=== PATIENT | male | born 1940 | race Two or more races ===

== ENCOUNTER 2016-07-20 00:48 | Inpatient (IN) | payer MEDICARE, OTHER ==
[~2016-07-20] VITALS: Ht 167.6 cm; Wt 81.6 kg
[2016-07-20] VITALS (9 sets, daily range): BP systolic 97–141; BP diastolic 44–76
[2016-07-20] MEDS ORDERED: Acetaminophen 500mg (ES) tab ORAL ONE (01:00)
--- NOTE | 2016-07-20 01:10 | Emergency Room Report ---
History of Present Illness General Chief Complaint: Altered Level of Consciousness Source: Family Member, EMS Present Illness HPI Patient present from home He had gone to the restroom and essentially had a near syncopal episode and general weakness patient complains of flank pain as well Was found to have elevated temperature here Patient denies any chest pain or shortness of breath Denies any vomiting or diarrhea Denies any neck pain Patient is somewhat of a poor historian This does limit the history of present illness Allergies: Coded Allergies: No Known Allergies (Unverified , 07/20/16) Patient History Past Medical History: see triage record Pertinent Family History: none Reviewed Nursing Documentation: PMH: Agreed, PSxH: Agreed Nursing Documentation-PMH Hx Hypertension: Yes - GLAUCOMA Review of Systems All Other Systems: negative except mentioned in HPI Physical Exam Vital Signs Date Time Temp Pulse Resp B/P Pulse Ox O2 Delivery O2 Flow Rate FiO2 07/20/16 00:37 99.9 69 21 129/51 99 Room Air Sp02 EP Interpretation: reviewed, normal General Appearance: no apparent distress Head: normocephalic, atraumatic Eyes: bilateral eye other - Blind in both eyes ENT: normal pharynx, no angioedema Neck: supple, thyroid normal Respiratory: chest non-tender, lungs clear, normal breath sounds Cardiovascular #1: regular rate, rhythm Gastrointestinal: non tender, soft Musculoskeletal: other - Edema bilaterally, no obvious focal deficits Neurologic: alert, oriented x3 Skin: other - as above Lymphatic: no adenopathy Medical Decision Making Diagnostic Impression: Primary Impression: Sepsis Additional Impression: UTI (urinary tract infection) ER Course Patient is a fairly complex patient with multiple differential to consideration including but not limited to cardiac cardiopulmonary , infectious and vascular emergencies Patient's urine sample did show infectious pathology Lactic acid was essentially normal Patient's given further IV hydration Antibiotics CT imaging reveals Nonspecific findings no obvious acute disease there is evidence of cirrhosis this time patient continues to do hemodynamically better and admitted for further inpatient care Labs Test 07/20/16 00:50 07/20/16 01:26 07/20/16 02:30 White Blood Count 7.3 K/UL (4.8-10.8) Red Blood Count 3.80 M/UL (4.70-6.10) Hemoglobin 13.1 G/DL (14.2-18.0) Hematocrit 38.0 % (42.0-52.0) Mean Corpuscular Volume 100 FL (80-99) Mean Corpuscular Hemoglobin 34.6 PG (27.0-31.0) Mean Corpuscular Hemoglobin Concent 34.6 G/DL (32.0-36.0) Red Cell Distribution Width 13.5 % (11.6-14.8) Platelet Count 113 K/UL (150-450) Mean Platelet Volume 6.0 FL (6.5-10.1) Neutrophils (%) (Auto) 75.0 % (45.0-75.0) Lymphocytes (%) (Auto) 15.8 % (20.0-45.0) Monocytes (%) (Auto) 7.3 % (1.0-10.0) Eosinophils (%) (Auto) 0.6 % (0.0-3.0) Basophils (%) (Auto) 1.3 % (0.0-2.0) Prothrombin Time 13.3 SEC (9.30-11.50) Prothromb Time International Ratio 1.3 (0.9-1.1) Activated Partial Thromboplast Time 34 SEC (23-33) Sodium Level 137 mEQ/L (135-145) Potassium Level 4.4 mEQ/L (3.4-4.9) Chloride Level 102 mEQ/L (98-107) Carbon Dioxide Level 21 mEQ/L (20-30) Anion Gap 14 (5-15) Blood Urea Nitrogen 12 mg/dL (7-23) Creatinine 0.8 mg/dL (0.7-1.2) Estimat Glomerular Filtration Rate mL/min (>60) Glucose Level 131 mg/dL (74-106) Lactic Acid Level 2.00 mmol/L (0.66-2.22) 1.60 mmol/L (0.66-2.22) Calcium Level 8.0 mg/dL (8.6-10.2) Total Bilirubin 2.4 mg/dL (0.0-1.2) Direct Bilirubin 0.8 mg/dL (0.1-0.3) Aspartate Amino Transf (AST/SGOT) 67 U/L (5-40) Alanine Aminotransferase (ALT/SGPT) 38 U/L (3-41) Alkaline Phosphatase 280 U/L (40-129) Total Creatine Kinase 99 U/L (38-174) Creatine Kinase MB < 1.5 ng/mL (< 6.7) Creatine Kinase MB Relative Index 1.5 Troponin I < 0.30 ng/mL (<=0.30) Pro-B-Type Natriuretic Peptide 137 pg/mL (0-450) Total Protein 7.7 g/dL (6.6-8.7) Albumin 2.3 g/dL (3.5-5.2) Globulin 5.4 g/dL Albumin/Globulin Ratio 0.4 (1.0-2.7) Lipase 64 U/L (< 60) Urine Color Yellow Urine Appearance Clear Urine pH 7 (4.5-8.0) Urine Specific [place] 1.015 (1.005-1.035) Urine Protein 2+ (NEGATIVE) Urine Glucose (UA) Negative (NEGATIVE) Urine Ketones 1+ (NEGATIVE) Urine Occult Blood 5+ (NEGATIVE) Urine Nitrite Negative (NEGATIVE) Urine Bilirubin 2+ (NEGATIVE) Urine Ictotest Negative Urine Urobilinogen 8 MG/DL (0.0-1.0) Urine Leukocyte Esterase 2+ (NEGATIVE) Urine RBC Tntc /HPF (0 - 0) Urine WBC 5-10 /HPF (0 - 0) Urine Squamous Epithelial Cells Few /LPF (NONE/OCC) Urine Bacteria Few /HPF (NONE) Rhythm Strip Diag. Results EP Interpretation: yes Rate: 77 Rhythm: NSR, no PVC's, no ectopy Chest X-Ray Diagnostic Results EP Interpretation: Yes Findings: no consolidation, no effusion, no pneumothorax Number of Views: 1 CT/MRI/US Diagnostic Results CT/MRI/US Diagnostic Results : Impression CT abdomen pelvis: Cirrhosis, calcified gallstone without evidence of cholecystitis bowel evaluation limited atelectasis bilaterally Last Vital Signs Date Time Temp Pulse Resp B/P Pulse Ox O2 Delivery O2 Flow Rate FiO2 07/20/16 00:45 99.9 78 21 125/51 99 Room Air Status: improved Condition: Serious Referrals: NOT CHOSEN IPA/,REFERRING (PCP) GEOFF BARRAGAN D.O. July 20, 2016 01:10
[2016-07-20 01:25] LABS: INR 1.3 (0.9-1.1); PROTHROMBIN TIME 13.3 SEC (9.30-11.50)
[2016-07-20 01:33] LABS: APPEARANCE,URINE CLEAR; KETONES,URINE 1+ (NEGATIVE); LEUKOCYTE ESTERASE ,URINE 2+ (NEGATIVE); NITRITE,URINE NEGATIVE (NEGATIVE); PH,URINE 7 (4.5-8.0); PROTEIN,URINE 2+ (NEGATIVE); UROBILINOGEN,URINE 8 MG/DL (0.0-1.0)
[2016-07-20 01:33] LABS: ALANINE AMINOTRANSFERASE 38 U/L (3-41); ALBUMIN/GLOBULIN RATIO 0.4 (1.0-2.7); ANION GAP 14 (5-15); ASPARTATE AMINO TRANSFERASE 67 U/L (5-40); BASOPHILS % (AUTO) 1.3 % (0.0-2.0); CARBON DIOXIDE 21 mEQ/L (20-30); CHLORIDE 102 mEQ/L (98-107); CREATININE 0.8 mg/dL (0.7-1.2); EOSINOPHILS % (AUTO) 0.6 % (0.0-3.0); HEMOLYSIS 23; LIPASE 64 U/L (< 60); LYMPHOCYTES % (AUTO) 15.8 % (20.0-45.0); MEAN CORPUSCULAR HEMOGLOBIN 34.6 PG (27.0-31.0); MEAN CORPUSCULAR HGB CONC 34.6 G/DL (32.0-36.0); MEAN CORPUSCULAR VOLUME 100 FL (80-99); MONOCYTES % (AUTO) 7.3 % (1.0-10.0); PLATELET COUNT 113 K/UL (150-450); POTASSIUM 4.4 mEQ/L (3.4-4.9); RED CELL DISTRIBUTION WIDTH 13.5 % (11.6-14.8); SODIUM 137 mEQ/L (135-145); TOTAL PROTEIN 7.7 g/dL (6.6-8.7); WHITE BLOOD COUNT 7.3 K/UL (4.8-10.8)
[2016-07-20 01:41] LABS: BACTERIA,URINE FEW /HPF; RBC,URINE TNTC /HPF (0 - 0); SQUAMOUS EPITHELIAL CELL,UR FEW /LPF (NONE/OCC)
[2016-07-20 01:42] LABS: TROPONIN I < 0.30 ng/mL (<=0.30)
[2016-07-20 01:42] LABS: ICTOTEST NEGATIVE
[2016-07-20 01:57] LABS: REFLEX LACTIC ACID YES OR NO YES
[2016-07-20] MEDS ORDERED: Piperacillin/Tazobactam 3.375 GM in NS 110 ML IVPB ONE ×2 (02:00→06:00)
[2016-07-20 02:16] LABS: BILIRUBIN,DIRECT 0.8 mg/dL (0.1-0.3)
[2016-07-20] MEDS ORDERED: Zosyn 3.375gm inj ONE (02:23)
[2016-07-20 02:25] LABS: CKMB < 1.5 ng/mL (< 6.7)
[2016-07-20] MEDS ORDERED: Milk of Magnesia 30ml Ud ORAL PRN (03:45)
[2016-07-20] MEDS ORDERED: LISINOPRIL10 MG ORAL (03:52)
[2016-07-20] MEDS ORDERED: Zosyn 3.375gm q8h **Extended infusion IVPB SCH ×2 (06:00)
[2016-07-20] MEDS: Zosyn 3.375gm q8h **Extended infusion IVPB SCH ×6 (08:00→23:30)
--- NOTE | 2016-07-20 08:56 | Diagnostic Imaging Report ---
Indications: Abdominal/flank pain Technique: Continuous helical CT imaging of the abdomen and pelvis was performed with automatic exposure control on a Siemens sensation [address] scanner. Axial, coronal, and sagittal images were reconstructed at 3 mm slice thickness. No oral or IV contrast was administered per protocol. CTDI volume(s): 17 mGy Total DLP: 882 mGy-cm Findings: Comparison: None. Kidneys, ureters, urinary bladder demonstrate no intraparenchymal or intraluminal stones, collecting system or ureteral dilation, perinephric or periureteral stranding. 14 mm circumscribed low-attenuation mass emanates exophytically from upper pole cortex of right kidney. Urinary bladder is partially distended with apparent mural thickening. Prostate seminal vesicles absent. Multiple surgical clips in prostate bed and along bilateral pelvic sidewalls. The appendix is unremarkable. Mild distention of small bowel loop in the midline upper pelvis. Multiple diverticula in sigmoid colon. No associated mural thickening or adjacent stranding. The gastrointestinal tract is otherwise normal in caliber. No extraluminal gas or fluid collections are demonstrated. Liver demonstrates diffusely nodular surface contour. 3 cm calcified stone is present in the gallbladder lumen. No obvious mural thickening, adjacent fluid or edema. Spleen 13.4 cm. Suggestion of small varices in the upper abdomen. Scattered arterial mural calcifications. Vascular patency indeterminate. Small fat-containing umbilical, left inguinal hernias. Remainder of visualized abdominopelvic anatomy demonstrates no other obvious abnormality, though lack of oral and IV contrast limits evaluation. Mildly increased interstitial markings and dependent portions of both lung bases. 3 mm noncalcified nodule lateral basal segment right pulmonary middle lobe (9-8).. Multilevel disc space narrowing with marginal osteophyte formation, vacuum phenomenon and lumbar, lower thoracic spine. Associated facet sclerosis and hypertrophy in lower lumbar spine. No focal skeletal lesions are identified. IMPRESSION: No evidence of renal or ureteral stone, hydronephrosis or hydroureter. Unremarkable appendix -- no evidence of acute appendicitis. Sigmoid colon diverticulosis. No evidence of acute diverticulitis. Mild distention of upper pelvic small bowel, nonobstructive in appearance, may represent localized ileus, etiology indeterminate Apparent thickening of urinary bladder wall--underdistention versus hypertrophy versus cystitis No other evidence of acute abdominopelvic disease. Lack of oral and IV contrast limits evaluation, however, and subtle abnormalities may be missed. Repeat CT scan with full oral and IV contrast preparation recommended for more complete evaluation, as clinically indicated. Cirrhosis with stigmata of portal hypertension including splenomegaly, varices Cholelithiasis. No evidence of acute cholecystitis. Right renal upper pole exophytic cortical mass probably but not definitely cysts. Ultrasound correlation recommended. Arteriosclerosis, vascular patency indeterminate Previous radical prostatectomy Fat-containing umbilical, left inguinal hernias Probable atelectatic changes in the lung bases Degenerative spondylosis This correlates with [facility] preliminary report. The CT scanner at [facility] is accredited by the [employer] and the scans are performed using protocols designed to limit radiation exposure to as low as reasonably achievable to attain images of sufficient resolution adequate for diagnostic evaluation.
[2016-07-20] MEDS: Aspirin Baby 81mg ORAL SCH (09:00)
--- NOTE | 2016-07-20 09:05 | Diagnostic Imaging Report ---
Indication: Shortness of breath Technique: Single portable AP view of the chest. Findings: Comparison: None. Suboptimal inspiration limits evaluation. Linear density right lung base. Left lung clear. Cardiac silhouette enlarged. Aortic arch calcified. The bones and extra pulmonary soft tissues, remainder of the cardiomediastinal silhouette, pulmonary vasculature, and pleural surfaces are unremarkable. IMPRESSION: Subsegmental atelectasis versus scarring right lung base Upright PA and lateral chest radiographs with better inspiratory effort and optimal technique recommended for more complete evaluation. Cardiomegaly Aortosclerosis.
[2016-07-20] MEDS ORDERED: PREDNISOLONE ACE5 ML OP (09:21)
[2016-07-20] MEDS ORDERED: LUMIGAN2.5 ML BOTH EYES (09:21)
[2016-07-20] MEDS ORDERED: COSOPT EYE DROP10 M1 OP (09:21)
[2016-07-20] MEDS ORDERED: PREDNISOLO15 MG/5 M1 ORAL (09:21)
[2016-07-20] MEDS ORDERED: LASIX20 M1 ORAL (09:21)
--- NOTE | 2016-07-20 12:13 | History & Physical ---
History and Physical History & Physicial HP dictated # [id number] SUSY KULKARNI July 20, 2016 12:13
[2016-07-20 13:15] LABS: CHOLESTEROL/HDL RATIO 5.4 (3.3-4.4)
[2016-07-20] MEDS ORDERED: Pred Forte 1% Opth Susp 1ml BOTH EYES ONE (13:30)
--- NOTE | 2016-07-20 16:43 | Neurology Progress Note ---
Objective Physical Exam Last Vital Signs Date Time Temp Pulse Resp B/P Pulse Ox O2 Delivery O2 Flow Rate FiO2 07/20/16 12:04 97.7 92 20 97/50 98 Room Air Laboratory Tests Test 07/20/16 00:50 07/20/16 01:26 07/20/16 02:30 White Blood Count 7.3 K/UL (4.8-10.8) Red Blood Count 3.80 M/UL (4.70-6.10) L Hemoglobin 13.1 G/DL (14.2-18.0) L Hematocrit 38.0 % (42.0-52.0) L Mean Corpuscular Volume 100 FL (80-99) H Mean Corpuscular Hemoglobin 34.6 PG (27.0-31.0) H Mean Corpuscular Hemoglobin Concent 34.6 G/DL (32.0-36.0) Red Cell Distribution Width 13.5 % (11.6-14.8) Platelet Count 113 K/UL (150-450) L Mean Platelet Volume 6.0 FL (6.5-10.1) L Neutrophils (%) (Auto) 75.0 % (45.0-75.0) Lymphocytes (%) (Auto) 15.8 % (20.0-45.0) L Monocytes (%) (Auto) 7.3 % (1.0-10.0) Eosinophils (%) (Auto) 0.6 % (0.0-3.0) Basophils (%) (Auto) 1.3 % (0.0-2.0) Prothrombin Time 13.3 SEC (9.30-11.50) H Prothromb Time International Ratio 1.3 (0.9-1.1) H Activated Partial Thromboplast Time 34 SEC (23-33) H Sodium Level 137 mEQ/L (135-145) Potassium Level 4.4 mEQ/L (3.4-4.9) Chloride Level 102 mEQ/L (98-107) Carbon Dioxide Level 21 mEQ/L (20-30) Anion Gap 14 (5-15) Blood Urea Nitrogen 12 mg/dL (7-23) Creatinine 0.8 mg/dL (0.7-1.2) Estimat Glomerular Filtration Rate mL/min (>60) Glucose Level 131 mg/dL (74-106) H Lactic Acid Level 2.00 mmol/L (0.66-2.22) 1.60 mmol/L (0.66-2.22) Calcium Level 8.0 mg/dL (8.6-10.2) L Total Bilirubin 2.4 mg/dL (0.0-1.2) H Direct Bilirubin 0.8 mg/dL (0.1-0.3) H Aspartate Amino Transf (AST/SGOT) 67 U/L (5-40) H Alanine Aminotransferase (ALT/SGPT) 38 U/L (3-41) Alkaline Phosphatase 280 U/L (40-129) H Total Creatine Kinase 99 U/L (38-174) Creatine Kinase MB < 1.5 ng/mL (< 6.7) Creatine Kinase MB Relative Index 1.5 Troponin I < 0.30 ng/mL (<=0.30) Pro-B-Type Natriuretic Peptide 137 pg/mL (0-450) Total Protein 7.7 g/dL (6.6-8.7) Albumin 2.3 g/dL (3.5-5.2) L Globulin 5.4 g/dL Albumin/Globulin Ratio 0.4 (1.0-2.7) L Triglycerides Level 135 mg/dL (< 150) Cholesterol Level 125 mg/dL (< 200) LDL Cholesterol 75 mg/dL (60-99) HDL Cholesterol 23 mg/dL (> 60) Cholesterol/HDL Ratio 5.4 (3.3-4.4) H Lipase 64 U/L (< 60) H Urine Color Yellow Urine Appearance Clear Urine pH 7 (4.5-8.0) Urine Specific [place] 1.015 (1.005-1.035) Urine Protein 2+ (NEGATIVE) H Urine Glucose (UA) Negative (NEGATIVE) Urine Ketones 1+ (NEGATIVE) H Urine Occult Blood 5+ (NEGATIVE) H Urine Nitrite Negative (NEGATIVE) Urine Bilirubin 2+ (NEGATIVE) H Urine Ictotest Negative Urine Urobilinogen 8 MG/DL (0.0-1.0) H Urine Leukocyte Esterase 2+ (NEGATIVE) H Urine RBC Tntc /HPF (0 - 0) H Urine WBC 5-10 /HPF (0 - 0) H Urine Squamous Epithelial Cells Few /LPF (NONE/OCC) Urine Bacteria Few /HPF (NONE) Impression/Recommendations Recommendations #[id number] LORI NERI July 20, 2016 16:43
[2016-07-20] MEDS: Cosopt Opth Soln 10 mL Btl BOTH EYES SCH (17:18)
--- NOTE | 2016-07-20 17:32 | History and Physical Report ---
DATE OF ADMISSION: 07/20/2016 CHIEF COMPLAINT: The patient had an episode of weakness and change in mental status. HISTORY OF PRESENT ILLNESS: This is a 76-year-old male, who was in his usual state of health. Yesterday, he went to the bathroom and then, he felt very weak. The patient lives with and daughter and they tried to help him to get around, but then he became unresponsive, although his eyes were open, he was becoming nonverbal. The patient was brought in to the emergency room by paramedics. This episode of not responding was short time according to the granddaughter, who is at bedside. The granddaughter was not present, but this is the history she obtained. PAST MEDICAL HISTORY: Includes history of glaucoma and history of hypertension. MEDICATIONS: Reviewed. ALLERGIES: No known drug allergies. SOCIAL HISTORY: No history of smoking or alcohol abuse. As mentioned, the patient lives with and another daughter. REVIEW OF SYSTEMS: Unobtainable. PHYSICAL EXAMINATION: GENERAL: The patient is an elderly male, in no acute distress. VITAL SIGNS: Blood pressure is 102/49, pulse 67, temperature 97.9 degrees, and respiratory rate is 20. HEENT: [place] conjunctivae. Anicteric sclerae. NECK: Supple. LUNGS: Clear to auscultation. HEART: S1 and S2 without murmurs or rubs. ABDOMEN: Soft and nontender. EXTREMITIES: Bilateral pedal edema. LABORATORY FINDINGS: The CBC shows a WBC of 7.3, hematocrit 38, hemoglobin 13.1, and platelets 113,000. Chemistry panel shows serum sodium of 137, potassium 4.4, chloride 102, CO2 21, BUN is 12, creatinine 0.8, blood sugar is 131, and calcium is 8. Albumin is 2.3. The UA shows too numerous to count RBCs and 5 to 10 WBCs per high-power field. ASSESSMENT: This is a 76-year-old male, who is admitted with what appears to be an episode of syncope. He has also evidence of urinary tract infection. He has significant peripheral edema on diuretics, question is if he has underlying congestive heart failure. PLAN: The patient was started on IV antibiotics. I will get an echocardiogram to assess LV function. The patient will be diuresed if needed. Neurology consultation will be obtained. Labs will be followed closely and further adjustments will be made in the patient's regimen. Also, I will order a renal ultrasound to make sure the patient does not have any stones. Dhaval Villeda M.D. DR: JAMES JOB#: [id number] CC:
[2016-07-20] MEDS: LUMIGAN 0.01% BOTH EYES SCH (21:00)
[2016-07-20] MEDS: OPTHALMIC BOTH EYES SCH (21:00)
--- NOTE | 2016-07-21 00:02 | Consultation ---
DATE OF CONSULTATION: 07/20/2016 INFECTIOUS DISEASE CONSULTATION PRIMARY ATTENDING PHYSICIAN: Dhaval Villeda M.D. REASON FOR CONSULT: UTI. HISTORY OF PRESENT ILLNESS: The patient is a 76-year-old male admitted today from home because of near syncope episode. The patient is complaining of weakness, flank pain, low-grade fever up to 99.9 degrees. The patient was found to have hematuria. PAST MEDICAL HISTORY: Significant for blindness, hypertension, cirrhosis. MEDICATIONS: Pred-Forte, Cosopt eye drop, aspirin, Zantac, Zosyn, Tylenol, milk of magnesia, and Zofran. ALLERGIES: No known drug allergy. SOCIAL HISTORY: Lives at home. Had history of heavy drinking 30 years ago. No drug abuse. No smoking. Minimally ambulatory at home where he experienced near syncope. REVIEW OF SYSTEMS: General: He is a very poor historian. PHYSICAL EXAMINATION: HEAD AND NECK: He has bilateral blindness. HEART: Regular. LUNGS: Clear. ABDOMEN: Soft and nontender. EXTREMITIES: He has swelling of both legs. LABORATORY AND DIAGNOSTIC DATA: WBC 7.3, hemoglobin 13.1, hematocrit 38, and platelets 113,000. Sodium 137, potassium 4.4, chloride 102, bicarbonate 21, and glucose 131. Bilirubin 2.4. AST 67, ALT 38 and alkaline phosphatase is 180. Lipase is 64. CT scan of the abdomen shows cirrhosis, cholelithiasis, portal hypertension, splenomegaly, and diverticulosis without diverticulitis. Chest x-ray showed subsegmental atelectasis versus scarring of right lung base, cardiomegaly, and atherosclerosis. Urinalysis showed 2+ bilirubin, leukocyte esterase 2+, RBC too numerous to count, and WBC 5-10. IMPRESSION: 1. Urinary tract infection. 2. The patient seems to have hematuria and pyuria. 3. Cirrhosis. 4. Portal hypertension. 5. Splenomegaly. 6. He has blindness. 7. History of hypertension. 8. Diverticulosis without diverticulitis. 9. Cholelithiasis. ATTENDING PHYSICIAN: We will continue with Zosyn and follow up the culture on antibiotics. I thank, Dr. Dhaval Villeda, for involving me in the care of this patient. Edvin Villeda M.D. DR: ALFRED JOB#: [id number] CC: GLENDA
--- NOTE | 2016-07-21 02:46 | Consultation ---
DATE OF CONSULTATION: 07/20/2016 NEUROLOGICAL CONSULTATION CONSULTING PHYSICIAN: Steven Pimentel M.D. REFERRING PHYSICIAN: Dhaval Villeda M.D. HISTORY OF PRESENT ILLNESS: This is a 76-year-old man seen in neurological consultation to evaluate the progressive abnormality of gait with episode of unresponsiveness. According to the patient as well as family known that in the last couple of years, he is having increasing difficulty with ambulation using someone helps, holding to the thompson, but refusing to use cane or walker. In the last few days, he developed significant swelling in both lower extremities feel "like a cold." On the day of admission, he was found to be in the bathroom on the ground confused, slowly unable to verbalize, unable to move arms and legs. So, the family had to carry him to the bed. He was not responding well and with this he was brought to the emergency room. He was complaining of pain in the flank area. His vital signs on admission included a temperature of 99.9. His laboratory work included a CBC study with hemoglobin 13.1, hematocrit 38.0, and elevated MCV and MCH, mild coagulopathy, INR 1.3 and PT of 13.3. Chemistry panel abnormal, elevated total bilirubin 2.4, AST 67, alkaline phosphatase 80, elevated lipase of 64, and albumin down to 2.3. Urinalysis with WBCs 5 to 10, RBC too numerous to count, 3+ leukocyte esterase, and 2+ protein. Imaging studies included a chest x-ray revealing cardiomegaly and aortic sclerosis. CAT scan of the abdomen and pelvis was abnormal revealing sigmoid colon diverticulosis, thickening of urinary bladder wall, cirrhosis with portal hypertension including splenomegaly and varices, cholelithiasis, and degenerative spondylosis. Since admission to present, the patient has retrograde amnesia on the vent. PAST MEDICAL HISTORY: The patient has extensive medical history including glaucoma with legal blindness, hypertension, prostate CA required a TURP, and history of progressive abnormality of gait. MEDICATIONS: Treatment prior to admission included eye drops, Lasix, lisinopril, and prednisone. FAMILY HISTORY: Noncontributory. SOCIAL HISTORY: Lives with his family. Able to provide himself with activities of daily living. Ambulating on his own, but holding to the wall and furniture. REVIEW OF SYMPTOMS: Denies headache or dizziness. No chest pain. No palpitations. No respiratory problems, but complains of significant weakness in his both lower extremities, difficult to ambulation and now new swelling in his lower extremities, blindness, and denies any swallowing abnormalities. No unilateral numbness, or tingling. PHYSICAL EXAMINATION: GENERAL: A well-developed, well-nourished, elderly man, lying comfortably in bed. He has the family members at the bedside. VITAL SIGNS: Stable. Blood pressure down to 97/50. He is afebrile. HEENT: Head is normocephalic. No evidence of trauma. No evidence of injuries. Eyes, no corneal lesions. NECK: Supple. No meningeal signs. MUSCULOSKELETAL EXAMINATION: A 2+ pitting edema of both lower extremities from knees down with some redness. Peripheral pulses unable to test for both feet. MENTAL STATUS: He is alert and oriented x3 with no evidence of aphasia or apraxia. He is a poor historian, but able to provide limited history. CRANIAL NERVE II: A 3 mm sluggishly responding to light. Visual acuity light perception only. Fundi unable to see. CRANIAL NERVE V: Normal corneal responses. CRANIAL NERVE VII: No gross asymmetry. CRANIAL NERVE VIII: Normal hearing. CRANIAL NERVES IX THROUGH XII: Tongue is in midline. Symmetric palatal elevation. MOTOR EXAMINATION: Revealed normal muscle tone and strength in both upper extremities. Normal muscle tone and strength in both lower extremities. Deep tendon reflexes depressed biceps, triceps, lower knee and ankle jerks. Plantar responses flexor. SENSORY EXAMINATION: Withdrawing to pin in both upper and lower extremities. Gait, the patient was helped to get up. He was walking very slowly, small steps, unsteady and pause due to blindness. IMPRESSION: 1. Progressive abnormality of gait multifactorial with worsening weakness due to underlying infection. 2. Lower extremity swelling, rule out cellulitis, rule out deep vein thrombosis. 3. Hypertension. 4. Glaucoma. 5. History of prostate cancer, status post prostatectomy. RECOMMENDATION: 1. Venous duplex study of both lower extremities. 2. PT and OT for mobility protocol and use of a walker in view of patient's blindness. 3. Continue on intravenous fluids and antibiotics to cover underlying infection. Thank you for allowing me to see this interesting patient in neurological consultation. Steven Pimentel M.D. DR: FAIZA JOB#: [id number] CC:
[2016-07-21 04:15] VITALS: BP 100/48
[2016-07-21 07:22] LABS: MEAN CORPUSCULAR HEMOGLOBIN 35.5 PG (27.0-31.0); MEAN CORPUSCULAR HGB CONC 34.9 G/DL (32.0-36.0); MEAN CORPUSCULAR VOLUME 102 FL (80-99); PLATELET COUNT 72 K/UL (150-450); RED BLOOD COUNT 3.02 M/UL (4.70-6.10); RED CELL DISTRIBUTION WIDTH 13.4 % (11.6-14.8); WHITE BLOOD COUNT 4.3 K/UL (4.8-10.8)
[2016-07-21 07:45] VITALS: BP 122/67
[2016-07-21 07:47] LABS: ALANINE AMINOTRANSFERASE 30 U/L (3-41); ALBUMIN/GLOBULIN RATIO 0.4 (1.0-2.7); ANION GAP 9 (5-15); ASPARTATE AMINO TRANSFERASE 68 U/L (5-40); CALCIUM 7.6 mg/dL (8.6-10.2); CARBON DIOXIDE 23 mEQ/L (20-30); CHLORIDE 105 mEQ/L (98-107); CREATININE 0.8 mg/dL (0.7-1.2); HEMOLYSIS 4; POTASSIUM 3.7 mEQ/L (3.4-4.9); SODIUM 137 mEQ/L (135-145); TOTAL PROTEIN 5.9 g/dL (6.6-8.7)
[2016-07-21 07:54] LABS: HEMOGLOBIN A1C 5.6 % (< 6.0)
[2016-07-21 08:00] LABS: BILIRUBIN,DIRECT 0.7 mg/dL (0.1-0.3)
[2016-07-21] MEDS: Zosyn 3.375gm q8h **Extended infusion IVPB SCH ×6 (08:00→23:44)
[2016-07-21] MEDS: Pred Forte 1% Opth Susp 1ml BOTH EYES SCH (08:31)
[2016-07-21] MEDS: Aspirin Baby 81mg ORAL SCH (08:33)
[2016-07-21] MEDS: Cosopt Opth Soln 10 mL Btl BOTH EYES SCH ×2 (08:33→17:24)
[2016-07-21] MEDS ORDERED: Pred Forte 1% Opth Susp 1ml LEFT EYE SCH (09:00)
[2016-07-21 09:55] LABS: BAND NEUTROPHILS % (MANUAL) 0 % (0-8); BASOPHILS % (MANUAL) 1 % (0-2); EOSINOPHILS % (MANUAL) 3 % (0-3); LYMPHOCYTES % (MANUAL) 31 % (20-45); NEUTROPHILS % (MANUAL) 54 % (45-75); PLATELET ESTIMATE DECREASED; PLATELET MORPHOLOGY NORMAL; TOTAL CELLS COUNTED 100
[2016-07-21 09:57] LABS: MACROCYTES 1+
[2016-07-21 11:19] VITALS: BP 115/54
--- NOTE | 2016-07-21 12:16 | Diagnostic Imaging Report ---
Indication: Abnormal renal function tests, elevated creatinine, history of prostate carcinoma, renal mass on recent CT scan Technique: Grayscale and duplex images of the kidneys, retroperitoneum, and bladder were obtained. Comparison:07/20/2016 CT abdomen pelvis Findings: Right kidney measures 11 cm in length. Left kidney measures cm in length. Both kidneys demonstrate normal echogenicity. No hydronephrosis. Anechoic mass with distal acoustic enhancement seen coming off the upper pole right kidney, consistent with a benign simple cyst, corresponding to the abnormality described on recent CT. No focal finding on the left kidney. Normal inferior vena cava. Bladder is nondistended, demonstrates equivocal wall thickening. Impression: Upper pole right renal mass reported on recent CT scan is confirmed to be a benign simple cortical cyst Negative for hydronephrosis Nondistended bladder, equivocal mild bladder wall thickening, cystitis not excludable..
--- NOTE | 2016-07-21 12:22 | Infectious Diseases Prog Note ---
Assessment/Plan Assessment/Plan antibiotics : zosyn A 1. gram positive sepsis 2. cirrhosis 3. HTN P 1. continue zosyn 2. start iv vancomycin 3. 2 d echo 4. will follow up cultures Subjective ROS Limited/Unobtainable: Yes Allergies: Coded Allergies: No Known Allergies (Unverified , 07/20/16) Objective Vital Signs Last 24 Hour Vital Signs Date Time Temp Pulse Resp B/P Pulse Ox O2 Delivery O2 Flow Rate FiO2 07/21/16 11:19 98.3 62 20 115/54 98 Room Air 07/21/16 08:00 56 07/21/16 07:45 98.1 58 20 122/67 97 Room Air 07/21/16 04:15 98.2 60 19 100/48 96 Room Air 07/21/16 04:00 52 07/21/16 00:00 57 07/20/16 23:49 97.9 56 18 101/60 98 Room Air 07/20/16 20:17 97.7 98 20 104/60 100 Room Air 07/20/16 20:00 53 07/20/16 16:00 97.6 80 20 100/55 98 Room Air 07/20/16 16:00 58 Height (Feet): 5 Height (Inches): 6.00 Weight (Pounds): 180 Respiratory/Chest: lungs clear Cardiovascular: normal rate, regular rhythm, no gallop/murmur Abdomen: soft, non tender Extremities: other - + edema bilaterally Microbiology Date/Time Source Procedure Growth Status 07/20/16 00:50 Blood Blood Culture - Preliminary Resulted 07/20/16 00:35 Blood Blood Culture - Preliminary Resulted Laboratory Tests Test 07/21/16 05:25 White Blood Count 4.3 K/UL (4.8-10.8) L Red Blood Count 3.02 M/UL (4.70-6.10) L Hemoglobin 10.7 G/DL (14.2-18.0) L Hematocrit 30.7 % (42.0-52.0) L Mean Corpuscular Volume 102 FL (80-99) H Mean Corpuscular Hemoglobin 35.5 PG (27.0-31.0) H Mean Corpuscular Hemoglobin Concent 34.9 G/DL (32.0-36.0) Red Cell Distribution Width 13.4 % (11.6-14.8) Platelet Count 72 K/UL (150-450) L Mean Platelet Volume 6.0 FL (6.5-10.1) L Neutrophils (%) (Auto) % (45.0-75.0) Lymphocytes (%) (Auto) % (20.0-45.0) Monocytes (%) (Auto) % (1.0-10.0) Eosinophils (%) (Auto) % (0.0-3.0) Basophils (%) (Auto) % (0.0-2.0) Differential Total Cells Counted 100 Neutrophils % (Manual) 54 % (45-75) Lymphocytes % (Manual) 31 % (20-45) Monocytes % (Manual) 11 % (1-10) H Eosinophils % (Manual) 3 % (0-3) Basophils % (Manual) 1 % (0-2) Band Neutrophils 0 % (0-8) Platelet Estimate Decreased L Platelet Morphology Normal Macrocytosis 1+ Sodium Level 137 mEQ/L (135-145) Potassium Level 3.7 mEQ/L (3.4-4.9) Chloride Level 105 mEQ/L (98-107) Carbon Dioxide Level 23 mEQ/L (20-30) Anion Gap 9 (5-15) Blood Urea Nitrogen 17 mg/dL (7-23) Creatinine 0.8 mg/dL (0.7-1.2) Estimat Glomerular Filtration Rate mL/min (>60) Glucose Level 93 mg/dL (74-106) Hemoglobin A1c 5.6 % (< 6.0) Calcium Level 7.6 mg/dL (8.6-10.2) L Total Bilirubin 1.9 mg/dL (0.0-1.2) H Direct Bilirubin 0.7 mg/dL (0.1-0.3) H Aspartate Amino Transf (AST/SGOT) 68 U/L (5-40) H Alanine Aminotransferase (ALT/SGPT) 30 U/L (3-41) Alkaline Phosphatase 152 U/L (40-129) H Total Protein 5.9 g/dL (6.6-8.7) L Albumin 1.7 g/dL (3.5-5.2) L Globulin 4.2 g/dL Albumin/Globulin Ratio 0.4 (1.0-2.7) L EMERY HIGGINBOTHAM July 21, 2016 12:22
[2016-07-21] MEDS ORDERED: NS 275ml ONE (13:58)
[2016-07-21] MEDS ORDERED: Vancomycin 1.5 GM in D5W 325 ML IVPB SCH (14:00)
--- NOTE | 2016-07-21 14:29 | General Progress Note ---
Assessment/Plan Problem List: (1) UTI (urinary tract infection) ICD Codes: N39.0 - Urinary tract infection, site not specified SNOMED: 79981967 (2) Sepsis ICD Codes: A41.9 - Sepsis, unspecified organism SNOMED: 08589825 (3) Gram-positive bacteremia ICD Codes: R78.81 - Bacteremia SNOMED: 257474834004 (4) Anasarca ICD Codes: R60.1 - Generalized edema SNOMED: 915449160, 684626432 Assessment/Plan Abxs check Echo GI consult Discussed with daughter Subjective Allergies: Coded Allergies: No Known Allergies (Unverified , 07/20/16) Subjective In NAD Objective Last 24 Hour Vital Signs Date Time Temp Pulse Resp B/P Pulse Ox O2 Delivery O2 Flow Rate FiO2 07/21/16 11:19 98.3 62 20 115/54 98 Room Air 07/21/16 08:00 56 07/21/16 07:45 98.1 58 20 122/67 97 Room Air 07/21/16 04:15 98.2 60 19 100/48 96 Room Air 07/21/16 04:00 52 07/21/16 00:00 57 07/20/16 23:49 97.9 56 18 101/60 98 Room Air 07/20/16 20:17 97.7 98 20 104/60 100 Room Air 07/20/16 20:00 53 07/20/16 16:00 97.6 80 20 100/55 98 Room Air 07/20/16 16:00 58 Intake and Output 07/20/16 07/21/16 19:00 07:00 Intake Total 852.5 ml 137.5 ml Balance 852.5 ml 137.5 ml Intake Oral 360 ml IV Total 492.5 ml 137.5 ml # Voids 5 2 Laboratory Tests 07/21/16 05:25: White Blood Count 4.3L, Red Blood Count 3.02L, Hemoglobin 10.7L, Hematocrit 30.7L, Mean Corpuscular Volume 102H, Mean Corpuscular Hemoglobin 35.5H, Mean Corpuscular Hemoglobin Concent 34.9, Red Cell Distribution Width 13.4, Platelet Count 72L, Mean Platelet Volume 6.0L, Neutrophils (%) (Auto) , Lymphocytes (%) ( Auto) , Monocytes (%) (Auto) , Eosinophils (%) (Auto) , Basophils (%) (Auto) , Differential Total Cells Counted 100, Neutrophils % (Manual) 54, Lymphocytes % ( Manual) 31, Monocytes % (Manual) 11H, Eosinophils % (Manual) 3, Basophils % ( Manual) 1, Band Neutrophils 0, Platelet Estimate DecreasedL, Platelet Morphology Normal, Macrocytosis 1+, Sodium Level 137, Potassium Level 3.7, Chloride Level 105, Carbon Dioxide Level 23, Anion Gap 9, Blood Urea Nitrogen 17 , Creatinine 0.8, Estimat Glomerular Filtration Rate , Glucose Level 93, Hemoglobin A1c 5.6, Calcium Level 7.6L, Total Bilirubin 1.9H, Direct Bilirubin 0.7H, Aspartate Amino Transf (AST/SGOT) 68H, Alanine Aminotransferase (ALT/SGPT ) 30, Alkaline Phosphatase 152H, Total Protein 5.9L, Albumin 1.7L, Globulin 4.2 , Albumin/Globulin Ratio 0.4L Height (Feet): 5 Height (Inches): 6.00 Weight (Pounds): 180 Cardiovascular: normal rate Respiratory/Chest: lungs clear Edema: 4+ Generalized SUSY KULKARNI July 21, 2016 14:29
[2016-07-21 15:21] VITALS: BP 122/57
--- NOTE | 2016-07-21 18:29 | Diagnostic Imaging Report ---
APPROVED REPORT CPT Code: 93035 Present Symptoms Lower Extremity Pain: Bilateral Lower Extremity Edema: Bilateral BILATERAL: Imaging reveals a patent deep venous system bilaterally. There is no evidence of thrombus within the femoral, popliteal or tibial segments. The greater saphenous veins are also within normal limits. Doppler indicates normal spontaneous flow within these segments.
[2016-07-21 20:05] VITALS: BP 115/62
[2016-07-21] MEDS: OPTHALMIC BOTH EYES SCH (20:40)
[2016-07-21] MEDS: LUMIGAN 0.01% BOTH EYES SCH (20:40)
--- NOTE | 2016-07-21 22:33 | General Progress Note ---
Assessment/Plan Assessment/Plan Assessment - Cirrhosis, etiology? - portal HTN - Edema - Resolving AMS Recommendations - Check AFP - Check NH3 - Lasix/Aldactone, if OK with renal - low salt diet - can refer to liver transplant clinic as outpatient, although doubt candidate based on age and level of disease Subjective Allergies: Coded Allergies: No Known Allergies (Unverified , 07/20/16) Objective Last 24 Hour Vital Signs Date Time Temp Pulse Resp B/P Pulse Ox O2 Delivery O2 Flow Rate FiO2 07/21/16 20:05 98.6 54 19 115/62 95 Room Air 07/21/16 16:00 53 07/21/16 15:21 98.3 54 20 122/57 97 Room Air 07/21/16 12:00 63 07/21/16 11:19 98.3 62 20 115/54 98 Room Air 07/21/16 08:00 56 07/21/16 07:45 98.1 58 20 122/67 97 Room Air 07/21/16 04:15 98.2 60 19 100/48 96 Room Air 07/21/16 04:00 52 07/21/16 00:00 57 07/20/16 23:49 97.9 56 18 101/60 98 Room Air Intake and Output 07/20/16 07/21/16 19:00 07:00 Intake Total 852.5 ml 137.5 ml Balance 852.5 ml 137.5 ml Intake Oral 360 ml IV Total 492.5 ml 137.5 ml # Voids 5 2 Laboratory Tests 07/21/16 05:25: White Blood Count 4.3L, Red Blood Count 3.02L, Hemoglobin 10.7L, Hematocrit 30.7L, Mean Corpuscular Volume 102H, Mean Corpuscular Hemoglobin 35.5H, Mean Corpuscular Hemoglobin Concent 34.9, Red Cell Distribution Width 13.4, Platelet Count 72L, Mean Platelet Volume 6.0L, Neutrophils (%) (Auto) , Lymphocytes (%) ( Auto) , Monocytes (%) (Auto) , Eosinophils (%) (Auto) , Basophils (%) (Auto) , Differential Total Cells Counted 100, Neutrophils % (Manual) 54, Lymphocytes % ( Manual) 31, Monocytes % (Manual) 11H, Eosinophils % (Manual) 3, Basophils % ( Manual) 1, Band Neutrophils 0, Platelet Estimate DecreasedL, Platelet Morphology Normal, Macrocytosis 1+, Sodium Level 137, Potassium Level 3.7, Chloride Level 105, Carbon Dioxide Level 23, Anion Gap 9, Blood Urea Nitrogen 17 , Creatinine 0.8, Estimat Glomerular Filtration Rate , Glucose Level 93, Hemoglobin A1c 5.6, Calcium Level 7.6L, Total Bilirubin 1.9H, Direct Bilirubin 0.7H, Aspartate Amino Transf (AST/SGOT) 68H, Alanine Aminotransferase (ALT/SGPT ) 30, Alkaline Phosphatase 152H, Total Protein 5.9L, Albumin 1.7L, Globulin 4.2 , Albumin/Globulin Ratio 0.4L Height (Feet): 5 Height (Inches): 6.00 Weight (Pounds): 180 NEO TAMAYO July 21, 2016 22:33
[2016-07-22 00:19] VITALS: BP 122/62
[2016-07-22 04:05] VITALS: BP 106/60
[2016-07-22 08:00] VITALS: BP 124/58
[2016-07-22] MEDS: Zosyn 3.375gm q8h **Extended infusion IVPB SCH ×4 (08:21→15:13)
[2016-07-22] MEDS: Cosopt Opth Soln 10 mL Btl BOTH EYES SCH ×2 (08:22→17:33)
[2016-07-22] MEDS: Pred Forte 1% Opth Susp 1ml BOTH EYES SCH (08:22)
[2016-07-22] MEDS: Aspirin Baby 81mg ORAL SCH (08:22)
[2016-07-22] MEDS ORDERED: Spironolactone 50mg tab ORAL SCH (09:00)
[2016-07-22 10:11] LABS: MEAN CORPUSCULAR HEMOGLOBIN 34.3 PG (27.0-31.0); MEAN CORPUSCULAR HGB CONC 33.7 G/DL (32.0-36.0); MEAN CORPUSCULAR VOLUME 102 FL (80-99); PLATELET COUNT 92 K/UL (150-450); RED BLOOD COUNT 3.36 M/UL (4.70-6.10); RED CELL DISTRIBUTION WIDTH 13.5 % (11.6-14.8); WHITE BLOOD COUNT 3.8 K/UL (4.8-10.8)
[2016-07-22 10:23] LABS: AMMONIA 95 umol/L (16-60)
[2016-07-22 10:24] LABS: ALANINE AMINOTRANSFERASE 33 U/L (3-41); ALBUMIN/GLOBULIN RATIO 0.3 (1.0-2.7); ANION GAP 10 (5-15); ASPARTATE AMINO TRANSFERASE 74 U/L (5-40); CALCIUM 7.6 mg/dL (8.6-10.2); CARBON DIOXIDE 22 mEQ/L (20-30); CHLORIDE 102 mEQ/L (98-107); CREATININE 0.7 mg/dL (0.7-1.2); HEMOLYSIS 3; POTASSIUM 3.8 mEQ/L (3.4-4.9); SODIUM 134 mEQ/L (135-145); TOTAL PROTEIN 6.4 g/dL (6.6-8.7)
--- NOTE | 2016-07-22 10:28 | Infectious Diseases Prog Note ---
Assessment/Plan Assessment/Plan antibiotics : vancomycin iv, zosyn A 1. cystitis 2. cirrhosis 3. HTN 4. + blood cultures with coag neg staph likely contaminated P 1. continue zosyn 2. urine cultures 3. will follow up cultures 4. d/c iv vancomycin Subjective ROS Limited/Unobtainable: Yes Allergies: Coded Allergies: No Known Allergies (Unverified , 07/20/16) Objective Vital Signs Last 24 Hour Vital Signs Date Time Temp Pulse Resp B/P Pulse Ox O2 Delivery O2 Flow Rate FiO2 07/22/16 08:00 97.7 60 19 124/58 99 Room Air 07/22/16 04:22 57 07/22/16 04:05 98.2 58 19 106/60 96 07/22/16 02:01 61 07/22/16 00:19 97.5 54 20 122/62 98 Room Air 07/21/16 20:05 98.6 54 19 115/62 95 Room Air 07/21/16 20:00 53 07/21/16 16:00 53 07/21/16 15:21 98.3 54 20 122/57 97 Room Air 07/21/16 12:00 63 07/21/16 11:19 98.3 62 20 115/54 98 Room Air Height (Feet): 5 Height (Inches): 6.00 Weight (Pounds): 180 Respiratory/Chest: lungs clear Cardiovascular: normal rate, regular rhythm, no gallop/murmur Abdomen: soft, non tender Extremities: other - + edema Microbiology Date/Time Source Procedure Growth Status 07/20/16 00:50 Blood Blood Culture - Final Staphylococcus Sp Coag Neg Complete 07/20/16 00:35 Blood Blood Culture - Preliminary Staphylococcus Sp Coag Neg Resulted Laboratory Tests Test 07/22/16 09:44 White Blood Count 3.8 K/UL (4.8-10.8) L Red Blood Count 3.36 M/UL (4.70-6.10) L Hemoglobin 11.5 G/DL (14.2-18.0) L Hematocrit 34.2 % (42.0-52.0) L Mean Corpuscular Volume 102 FL (80-99) H Mean Corpuscular Hemoglobin 34.3 PG (27.0-31.0) H Mean Corpuscular Hemoglobin Concent 33.7 G/DL (32.0-36.0) Red Cell Distribution Width 13.5 % (11.6-14.8) Platelet Count 92 K/UL (150-450) L Mean Platelet Volume 6.0 FL (6.5-10.1) L Neutrophils (%) (Auto) % (45.0-75.0) Lymphocytes (%) (Auto) % (20.0-45.0) Monocytes (%) (Auto) % (1.0-10.0) Eosinophils (%) (Auto) % (0.0-3.0) Basophils (%) (Auto) % (0.0-2.0) Neutrophils % (Manual) Pending Lymphocytes % (Manual) Pending Platelet Estimate Pending Platelet Morphology Pending Sodium Level 134 mEQ/L (135-145) L Potassium Level 3.8 mEQ/L (3.4-4.9) Chloride Level 102 mEQ/L (98-107) Carbon Dioxide Level 22 mEQ/L (20-30) Anion Gap 10 (5-15) Blood Urea Nitrogen 12 mg/dL (7-23) Creatinine 0.7 mg/dL (0.7-1.2) Estimat Glomerular Filtration Rate mL/min (>60) Glucose Level 156 mg/dL (74-106) H Calcium Level 7.6 mg/dL (8.6-10.2) L Total Bilirubin 1.2 mg/dL (0.0-1.2) Direct Bilirubin Pending Aspartate Amino Transf (AST/SGOT) 74 U/L (5-40) H Alanine Aminotransferase (ALT/SGPT) 33 U/L (3-41) Alkaline Phosphatase 196 U/L (40-129) H Ammonia 95 umol/L (16-60) H Total Protein 6.4 g/dL (6.6-8.7) L Albumin 1.8 g/dL (3.5-5.2) L Globulin 4.6 g/dL Albumin/Globulin Ratio 0.3 (1.0-2.7) L Alpha Fetoprotein Pending Hepatitis A IgM Antibody Pending Hepatitis B Surface Antigen Pending Hepatitis B Core IgM Antibody Pending Hepatitis C Antibody Pending EMERY HIGGINBOTHAM July 22, 2016 10:28
[2016-07-22 10:36] LABS: BILIRUBIN,DIRECT 0.5 mg/dL (0.1-0.3)
[2016-07-22 10:42] LABS: EOSINOPHILS % (MANUAL) 3 % (0-3); LYMPHOCYTES % (MANUAL) 45 % (20-45); NEUTROPHILS % (MANUAL) 47 % (45-75); TOTAL CELLS COUNTED 100
[2016-07-22 10:43] LABS: ANISOCYTOSIS 1+; BAND NEUTROPHILS % (MANUAL) 0 % (0-8); BASOPHILS % (MANUAL) 0 % (0-2); HYPOCHROMASIA 1+; MACROCYTES 1+; PLATELET ESTIMATE DECREASED; PLATELET MORPHOLOGY NORMAL
[2016-07-22 12:00] VITALS: BP 117/59
--- NOTE | 2016-07-22 14:34 | General Progress Note ---
Assessment/Plan Problem List: (1) UTI (urinary tract infection) ICD Codes: N39.0 - Urinary tract infection, site not specified SNOMED: 59883028 (2) Sepsis ICD Codes: A41.9 - Sepsis, unspecified organism SNOMED: 03756967 (3) Gram-positive bacteremia ICD Codes: R78.81 - Bacteremia SNOMED: 196993244759 (4) Anasarca ICD Codes: R60.1 - Generalized edema SNOMED: 597207524, 662222275 Status Narrative BC contaminant Assessment/Plan Abxs GI F/U Discussed with family OK to alva Subjective Allergies: Coded Allergies: No Known Allergies (Unverified , 07/20/16) Subjective In NAD Objective Last 24 Hour Vital Signs Date Time Temp Pulse Resp B/P Pulse Ox O2 Delivery O2 Flow Rate FiO2 07/22/16 12:00 97.4 52 18 117/59 98 Room Air 07/22/16 12:00 51 07/22/16 08:00 62 07/22/16 08:00 97.7 60 19 124/58 99 Room Air 07/22/16 04:22 57 07/22/16 04:05 98.2 58 19 106/60 96 07/22/16 02:01 61 07/22/16 00:19 97.5 54 20 122/62 98 Room Air 07/21/16 20:05 98.6 54 19 115/62 95 Room Air 07/21/16 20:00 53 07/21/16 16:00 53 07/21/16 15:21 98.3 54 20 122/57 97 Room Air Intake and Output 07/21/16 07/22/16 19:00 07:00 Intake Total 1230.0 ml Output Total 250 ml Balance 980.0 ml Intake Oral 740 ml IV Total 490.0 ml Output Urine Total 250 ml # Voids 2 2 # Bowel Movements 3 1 Laboratory Tests 07/22/16 09:44: White Blood Count 3.8L, Red Blood Count 3.36L, Hemoglobin 11.5L, Hematocrit 34.2L, Mean Corpuscular Volume 102H, Mean Corpuscular Hemoglobin 34.3H, Mean Corpuscular Hemoglobin Concent 33.7, Red Cell Distribution Width 13.5, Platelet Count 92L, Mean Platelet Volume 6.0L, Neutrophils (%) (Auto) , Lymphocytes (%) ( Auto) , Monocytes (%) (Auto) , Eosinophils (%) (Auto) , Basophils (%) (Auto) , Differential Total Cells Counted 100, Neutrophils % (Manual) 47, Lymphocytes % ( Manual) 45, Monocytes % (Manual) 5, Eosinophils % (Manual) 3, Basophils % ( Manual) 0, Band Neutrophils 0, Platelet Estimate DecreasedL, Platelet Morphology Normal, Hypochromasia 1+, Anisocytosis 1+, Macrocytosis 1+, Sodium Level 134L, Potassium Level 3.8, Chloride Level 102, Carbon Dioxide Level 22, Anion Gap 10, Blood Urea Nitrogen 12, Creatinine 0.7, Estimat Glomerular Filtration Rate , Glucose Level 156H, Calcium Level 7.6L, Total Bilirubin 1.2, Direct Bilirubin 0.5H, Aspartate Amino Transf (AST/SGOT) 74H, Alanine Aminotransferase (ALT/SGPT) 33, Alkaline Phosphatase 196H, Ammonia 95H, Total Protein 6.4L, Albumin 1.8L, Globulin 4.6, Albumin/Globulin Ratio 0.3L, Alpha Fetoprotein [Pending], Hepatitis A IgM Antibody [Pending], Hepatitis B Surface Antigen [Pending], Hepatitis B Core IgM Antibody [Pending], Hepatitis C Antibody [Pending] Height (Feet): 5 Height (Inches): 6.00 Weight (Pounds): 180 Cardiovascular: normal rate Respiratory/Chest: lungs clear Abdomen: non tender SUSY SKY July 22, 2016 14:34
[2016-07-22 16:00] VITALS: BP 113/74
[2016-07-22] MEDS ORDERED: Furosemide 40mg tab ORAL SCH (18:00)
[2016-07-22 20:00] VITALS: BP 135/78
[2016-07-22] MEDS: LUMIGAN 0.01% BOTH EYES SCH (20:55)
[2016-07-22] MEDS: OPTHALMIC BOTH EYES SCH (20:55)
--- NOTE | 2016-07-22 21:01 | Consultation ---
DATE OF CONSULTATION: 07/21/2016 GASTROENTEROLOGY CONSULTATION CONSULTING PHYSICIAN: Gerson Grady M.D. REFERRING PHYSICIAN: Dhvaal Villeda M.D. CHIEF COMPLAINT: I was asked to see this patient by Dr. Dhaval Villeda for evaluation of cirrhosis. HISTORY OF PRESENT ILLNESS: The patient is a 76-year-old man with multiple medical problems who was brought into the hospital due to weakness and altered mental status. He apparently was and became unresponsive. He also became nonverbal. He was brought to the emergency room and his mental status had improved. He now answers all questions, and he is awake and alert. His vision is poor and his eyes are closed due to glaucoma. Most of the information is available from the chart. He denies any nausea or vomiting, but he does note he has cirrhosis. He has not drunk in 30 years. He lives at home with his . PAST MEDICAL HISTORY: History of glaucoma, history of hypertension, and history of cirrhosis. FAMILY HISTORY: Noncontributory. SOCIAL HISTORY: The patient lives with his and his daughter. He does not smoke or drink at this time, and he drank approximately 30 years ago, but has not drunk since then. ALLERGIES: None. REVIEW OF SYSTEMS: Otherwise negative. MEDICATIONS: See chart for details. PHYSICAL EXAMINATION: GENERAL: A pleasant debilitated man, seen in his room with his at bedside. HEENT: Normocephalic and atraumatic. Oropharynx is clear. NECK: Supple. CHEST: Clear to auscultation. CARDIOVASCULAR: Regular rate. ABDOMEN: Soft and distended. EXTREMITIES: Edema in the lower extremities, upper extremities, and the trunk. NEUROLOGIC: Exam was deferred to Neurology, but the patient was awake, alert, and responsive at this time. LABORATORY DATA: Noted. The patient did have abnormal liver tests as well as decreased platelet count and anemia. CT scan of the abdomen and pelvis was reviewed, and it did show significant cirrhosis with no evidence of recorded. ASSESSMENT: This patient presents with apparent cirrhosis and evidence of portal hypertension based on the imaging as well as laboratory criteria. The patient's ammonia level should be checked since this may be the cause for his altered mental status and treated if necessary. The patient should also have an alpha-fetoprotein level checked. He is edematous in his lower extremities, therefore, clinical course of emergency Aldactone should be given to maintain his volume balance. The etiology of his liver disease is unclear, but I will check hepatitis B and C serologies. Fatty liver may ultimately be the underlying diagnosis. He is over 75 years old, and, therefore, liver transplantation cannot be an option, but he can be referred to [facility] or other nearby liver transplant center after this discharge to see if he would be a candidate for this procedure. RECOMMENDATIONS: Per above discussion and per orders written in the chart. Thank you for asking me to participate in the care this patient. Gerson Grady M.D. DR: KEYSHA JOB#: [id number] CC:
--- NOTE | 2016-07-22 21:25 | General Progress Note ---
Assessment/Plan Assessment/Plan Assessment - Cirrhosis, etiology? - portal HTN - Edema - Resolving AMS with elevated NH3 Recommendations - Check AFP - lactulose - Lasix/Aldactone - low salt diet - can refer to liver transplant clinic as outpatient, although doubt candidate based on age and level of disease Subjective Allergies: Coded Allergies: No Known Allergies (Unverified , 07/20/16) Subjective Feels OK no new complaints Objective Last 24 Hour Vital Signs Date Time Temp Pulse Resp B/P Pulse Ox O2 Delivery O2 Flow Rate FiO2 07/22/16 20:00 97.7 56 20 135/78 98 Room Air 07/22/16 16:00 98.0 56 19 113/74 98 Room Air 07/22/16 16:00 54 07/22/16 12:00 97.4 52 18 117/59 98 Room Air 07/22/16 12:00 51 07/22/16 08:00 62 07/22/16 08:00 97.7 60 19 124/58 99 Room Air 07/22/16 04:22 57 07/22/16 04:05 98.2 58 19 106/60 96 07/22/16 02:01 61 07/22/16 00:19 97.5 54 20 122/62 98 Room Air Intake and Output 07/21/16 07/22/16 19:00 07:00 Intake Total 1230.0 ml Output Total 250 ml Balance 980.0 ml Intake Oral 740 ml IV Total 490.0 ml Output Urine Total 250 ml # Voids 2 2 # Bowel Movements 3 1 Laboratory Tests 07/22/16 09:44: White Blood Count 3.8L, Red Blood Count 3.36L, Hemoglobin 11.5L, Hematocrit 34.2L, Mean Corpuscular Volume 102H, Mean Corpuscular Hemoglobin 34.3H, Mean Corpuscular Hemoglobin Concent 33.7, Red Cell Distribution Width 13.5, Platelet Count 92L, Mean Platelet Volume 6.0L, Neutrophils (%) (Auto) , Lymphocytes (%) ( Auto) , Monocytes (%) (Auto) , Eosinophils (%) (Auto) , Basophils (%) (Auto) , Differential Total Cells Counted 100, Neutrophils % (Manual) 47, Lymphocytes % ( Manual) 45, Monocytes % (Manual) 5, Eosinophils % (Manual) 3, Basophils % ( Manual) 0, Band Neutrophils 0, Platelet Estimate DecreasedL, Platelet Morphology Normal, Hypochromasia 1+, Anisocytosis 1+, Macrocytosis 1+, Sodium Level 134L, Potassium Level 3.8, Chloride Level 102, Carbon Dioxide Level 22, Anion Gap 10, Blood Urea Nitrogen 12, Creatinine 0.7, Estimat Glomerular Filtration Rate , Glucose Level 156H, Calcium Level 7.6L, Total Bilirubin 1.2, Direct Bilirubin 0.5H, Aspartate Amino Transf (AST/SGOT) 74H, Alanine Aminotransferase (ALT/SGPT) 33, Alkaline Phosphatase 196H, Ammonia 95H, Total Protein 6.4L, Albumin 1.8L, Globulin 4.6, Albumin/Globulin Ratio 0.3L, Alpha Fetoprotein [Pending], Hepatitis A IgM Antibody [Pending], Hepatitis B Surface Antigen [Pending], Hepatitis B Core IgM Antibody [Pending], Hepatitis C Antibody [Pending] Height (Feet): 5 Height (Inches): 6.00 Weight (Pounds): 180 Objective Debilitated man NCAT supple CTA RRR soft ND NT (+) edema nonfocal NEO TAMAYO July 22, 2016 21:25
[2016-07-22] MEDS: Piperacillin/Tazobactam 3.375 GM in D5W 110 ML IVPB SCH (23:48)
[2016-07-23] VITALS: BP 127/66
[2016-07-23] MEDS ORDERED: Milk of Magnesia 30ml Ud ORAL PRN (03:45)
[2016-07-23 04:00] VITALS: BP 116/61
[2016-07-23 04:35] LABS: ANION GAP 10 (5-15); CALCIUM 7.5 mg/dL (8.6-10.2); CARBON DIOXIDE 25 mEQ/L (20-30); CHLORIDE 103 mEQ/L (98-107); CREATININE 0.8 mg/dL (0.7-1.2); HEMOLYSIS 3; POTASSIUM 3.7 mEQ/L (3.4-4.9); SODIUM 138 mEQ/L (135-145)
[2016-07-23 08:00] VITALS: BP 143/75
[2016-07-23] MEDS: Lactulose 20gm/30ml UDC ORAL SCH ×2 (08:32→18:00)
[2016-07-23] MEDS: Aspirin Baby 81mg ORAL SCH (08:32)
[2016-07-23] MEDS: Cosopt Opth Soln 10 mL Btl BOTH EYES SCH ×2 (08:33→18:01)
[2016-07-23] MEDS: Spironolactone 50mg tab ORAL SCH (08:33)
[2016-07-23] MEDS: Furosemide 40mg tab ORAL SCH ×2 (08:33→18:01)
[2016-07-23] MEDS: Pred Forte 1% Opth Susp 1ml BOTH EYES SCH (08:34)
[2016-07-23] MEDS: Piperacillin/Tazobactam 3.375 GM in D5W 110 ML IVPB SCH ×3 (08:36→23:33)
--- NOTE | 2016-07-23 10:12 | Infectious Diseases Prog Note ---
Assessment/Plan Assessment/Plan A: 1. cystitis 2. cirrhosis 3. HPN 4. + blood cultures with coag neg staph likely contaminated P 1. continue Zosyn 2. will follow up cultures 3. in case of discharge PO Levaquin X 2 days Subjective ROS Limited/Unobtainable: Yes Allergies: Coded Allergies: No Known Allergies (Unverified , 07/20/16) Objective Vital Signs Last 24 Hour Vital Signs Date Time Temp Pulse Resp B/P Pulse Ox O2 Delivery O2 Flow Rate FiO2 07/23/16 08:00 98.6 60 16 143/75 96 Room Air 07/23/16 04:00 98.2 53 18 116/61 97 Room Air 07/23/16 00:00 97.7 53 18 127/66 99 Room Air 07/22/16 20:00 97.7 56 20 135/78 98 Room Air 07/22/16 16:00 98.0 56 19 113/74 98 Room Air 07/22/16 16:00 54 07/22/16 12:00 97.4 52 18 117/59 98 Room Air 07/22/16 12:00 51 Height (Feet): 5 Height (Inches): 6.00 Weight (Pounds): 180 General Appearance: no acute distress HEENT: other - blind Cardiovascular: normal rate Abdomen: soft, non tender Extremities: no edema Neurologic/Psychiatric: alert, responsive Laboratory Tests Test 07/23/16 03:20 Sodium Level 138 mEQ/L (135-145) Potassium Level 3.7 mEQ/L (3.4-4.9) Chloride Level 103 mEQ/L (98-107) Carbon Dioxide Level 25 mEQ/L (20-30) Anion Gap 10 (5-15) Blood Urea Nitrogen 11 mg/dL (7-23) Creatinine 0.8 mg/dL (0.7-1.2) Estimat Glomerular Filtration Rate mL/min (>60) Glucose Level 103 mg/dL (74-106) Calcium Level 7.5 mg/dL (8.6-10.2) L Current Medications Medications (Trade) Dose Ordered Sig/Silvestre Route PRN Reason Start Time Stop Time Status Last Admin Dose Admin Acetaminophen (Tylenol) 650 mg Q4H PRN ORAL Mild Pain (Pain Scale 1-3) 07/22/16 23:45 08/21/16 23:44 Aspirin (ASA) 81 mg DAILY ORAL 5/28/17 09:00 08/22/16 08:59 07/23/16 08:32 Dextrose (Dextrose 50%) STAT PRN IV Hypoglycemia 07/23/16 03:45 08/22/16 03:44 Dorzolamide/ Timolol (Cosopt) 1 drop TWICE A DAY BOTH EYES 07/23/16 09:00 08/22/16 08:59 07/23/16 08:33 Furosemide (Lasix) 40 mg BID ORAL 07/23/16 09:00 08/22/16 08:59 07/23/16 08:33 Lactulose (Cephulac) 30 gm BID ORAL 07/23/16 09:00 08/22/16 08:59 07/23/16 08:32 Magnesium Hydroxide (Mom) 30 ml HSPRN PRN ORAL Constipation 07/23/16 03:45 08/22/16 03:44 Ondansetron HCl (Zofran) 4 mg Q6H PRN IVP Nausea & Vomiting 07/23/16 03:45 08/22/16 03:44 Patient Own Medication (Patient's Own Med) 1 ea QHS BOTH EYES 07/23/16 21:00 08/22/16 20:59 Piperacillin Sod/ Tazobactam Sod/ Dextrose (Zosyn/D5W) 110 ml @ 27.5 mls/hr Q8H IVPB 07/23/16 00:00 07/30/16 00:00 07/23/16 08:36 Prednisolone Acetate (Pred Forte) 1 drop DAILY BOTH EYES 07/23/16 09:00 08/22/16 08:59 07/23/16 08:34 Ranitidine HCl (Zantac) 150 mg TWICE A DAY ORAL 07/23/16 09:00 08/22/16 08:59 07/23/16 08:32 Spironolactone (Aldactone) 50 mg DAILY ORAL 07/23/16 09:00 08/22/16 08:59 07/23/16 08:33 KIN KULKARNI July 23, 2016 10:12
[2016-07-23 12:00] VITALS: BP 116/64
--- NOTE | 2016-07-23 14:17 | General Progress Note ---
Assessment/Plan Assessment/Plan Assessment - Cirrhosis, etiology? - portal HTN - Edema - Resolving AMS with elevated NH3 Recommendations - Check AFP - lactulose - Lasix/Aldactone - low salt diet - can refer to liver transplant clinic as outpatient, although doubt candidate based on age and level of disease Subjective Allergies: Coded Allergies: No Known Allergies (Unverified , 07/20/16) Subjective Feels OK no new complaints Objective Last 24 Hour Vital Signs Date Time Temp Pulse Resp B/P Pulse Ox O2 Delivery O2 Flow Rate FiO2 07/23/16 12:00 98.2 68 18 116/64 96 Room Air 07/23/16 08:00 98.6 60 16 143/75 96 Room Air 07/23/16 04:00 98.2 53 18 116/61 97 Room Air 07/23/16 00:00 97.7 53 18 127/66 99 Room Air 07/22/16 20:00 97.7 56 20 135/78 98 Room Air 07/22/16 16:00 98.0 56 19 113/74 98 Room Air 07/22/16 16:00 54 Intake and Output 07/22/16 07/23/16 19:00 07:00 Intake Total 192.5 ml 147.5 ml Output Total 320 ml Balance 192.5 ml -172.5 ml Intake Oral 120 ml IV Total 192.5 ml 27.5 ml Output Urine Total 320 ml Laboratory Tests 07/23/16 03:20: Sodium Level 138, Potassium Level 3.7, Chloride Level 103, Carbon Dioxide Level 25, Anion Gap 10, Blood Urea Nitrogen 11, Creatinine 0.8, Estimat Glomerular Filtration Rate , Glucose Level 103, Calcium Level 7.5L Height (Feet): 5 Height (Inches): 6.00 Weight (Pounds): 180 Objective Debilitated man NCAT supple CTA RRR soft ND NT (+) edema nonfocal NEO TAMAYO July 23, 2016 14:17
--- NOTE | 2016-07-23 14:37 | General Progress Note ---
Assessment/Plan Problem List: (1) UTI (urinary tract infection) ICD Codes: N39.0 - Urinary tract infection, site not specified SNOMED: 67749830 (2) Sepsis ICD Codes: A41.9 - Sepsis, unspecified organism SNOMED: 19314060 (3) Gram-positive bacteremia ICD Codes: R78.81 - Bacteremia SNOMED: 276448512530 (4) Anasarca ICD Codes: R60.1 - Generalized edema SNOMED: 926691747, 580719418 Assessment/Plan Abxs GI F/U Discussed with diuresis Subjective Allergies: Coded Allergies: No Known Allergies (Unverified , 07/20/16) Subjective better Objective Last 24 Hour Vital Signs Date Time Temp Pulse Resp B/P Pulse Ox O2 Delivery O2 Flow Rate FiO2 07/23/16 12:00 98.2 68 18 116/64 96 Room Air 07/23/16 08:00 98.6 60 16 143/75 96 Room Air 07/23/16 04:00 98.2 53 18 116/61 97 Room Air 07/23/16 00:00 97.7 53 18 127/66 99 Room Air 07/22/16 20:00 97.7 56 20 135/78 98 Room Air 07/22/16 16:00 98.0 56 19 113/74 98 Room Air 07/22/16 16:00 54 Intake and Output 07/22/16 07/23/16 19:00 07:00 Intake Total 192.5 ml 147.5 ml Output Total 320 ml Balance 192.5 ml -172.5 ml Intake Oral 120 ml IV Total 192.5 ml 27.5 ml Output Urine Total 320 ml Laboratory Tests 07/23/16 03:20: Sodium Level 138, Potassium Level 3.7, Chloride Level 103, Carbon Dioxide Level 25, Anion Gap 10, Blood Urea Nitrogen 11, Creatinine 0.8, Estimat Glomerular Filtration Rate , Glucose Level 103, Calcium Level 7.5L Height (Feet): 5 Height (Inches): 6.00 Weight (Pounds): 180 Cardiovascular: normal rate Respiratory/Chest: lungs clear Edema: 4+ Generalized SUSY KULKARNI July 23, 2016 14:37
[2016-07-23 16:00] VITALS: BP 118/69
[2016-07-23 20:00] VITALS: BP 132/77
[2016-07-23] MEDS: LUMIGAN 0.01% BOTH EYES SCH (20:39)
[2016-07-23] MEDS: OPTHALMIC BOTH EYES SCH (20:39)
[2016-07-24] VITALS: BP 138/60
[2016-07-24 04:00] VITALS: BP 125/70
[2016-07-24 08:00] VITALS: BP 136/70
[2016-07-24] MEDS: Piperacillin/Tazobactam 3.375 GM in D5W 110 ML IVPB SCH ×2 (08:31→15:43)
[2016-07-24] MEDS: Furosemide 40mg tab ORAL SCH ×2 (08:31→17:53)
[2016-07-24] MEDS: Lactulose 20gm/30ml UDC ORAL SCH ×2 (08:31→17:56)
[2016-07-24] MEDS: Spironolactone 50mg tab ORAL SCH (08:31)
[2016-07-24] MEDS: Pred Forte 1% Opth Susp 1ml BOTH EYES SCH (08:32)
[2016-07-24] MEDS: Aspirin Baby 81mg ORAL SCH (08:33)
[2016-07-24] MEDS: Cosopt Opth Soln 10 mL Btl BOTH EYES SCH ×2 (09:00→17:54)
--- NOTE | 2016-07-24 11:17 | General Progress Note ---
Assessment/Plan Assessment/Plan Assessment - Cirrhosis, etiology? - portal HTN - Edema - Resolving AMS with elevated NH3 Recommendations - Check AFP - lactulose - Lasix/Aldactone - low salt diet - can refer to liver transplant clinic as outpatient, although doubt candidate based on age and level of disease Subjective Allergies: Coded Allergies: No Known Allergies (Unverified , 07/20/16) Subjective Feels OK no new complaints d/w at bedside Objective Last 24 Hour Vital Signs Date Time Temp Pulse Resp B/P Pulse Ox O2 Delivery O2 Flow Rate FiO2 07/24/16 08:00 96.0 55 20 136/70 93 Room Air 07/24/16 04:00 97.8 51 21 125/70 99 Room Air 07/24/16 00:00 97.7 50 22 138/60 98 Room Air 07/23/16 20:00 98.1 56 18 132/77 99 Room Air 07/23/16 16:00 98.1 58 18 118/69 97 Room Air 07/23/16 12:00 98.2 68 18 116/64 96 Room Air Intake and Output 07/23/16 07/24/16 19:00 07:00 Intake Total 620 ml Output Total 200 ml 300 ml Balance 420 ml -300 ml Intake Oral 400 ml IV Total 220 ml Output Urine Total 200 ml 300 ml # Bowel Movements 1 Height (Feet): 5 Height (Inches): 6.00 Weight (Pounds): 180 Objective Debilitated man NCAT supple CTA RRR soft ND NT (+) edema nonfocal NEO TAMAYO July 24, 2016 11:17
--- NOTE | 2016-07-24 11:27 | Infectious Diseases Prog Note ---
Assessment/Plan Assessment/Plan antibiotics : zosyn A 1. cystitis 2. cirrhosis 3. HTN 4. + blood cultures with coag neg staph likely contaminated P 1. continue zosyn 2. will follow up cultures Subjective ROS Limited/Unobtainable: Yes Allergies: Coded Allergies: No Known Allergies (Unverified , 07/20/16) Objective Vital Signs Last 24 Hour Vital Signs Date Time Temp Pulse Resp B/P Pulse Ox O2 Delivery O2 Flow Rate FiO2 07/24/16 08:00 96.0 55 20 136/70 93 Room Air 07/24/16 04:00 97.8 51 21 125/70 99 Room Air 07/24/16 00:00 97.7 50 22 138/60 98 Room Air 07/23/16 20:00 98.1 56 18 132/77 99 Room Air 07/23/16 16:00 98.1 58 18 118/69 97 Room Air 07/23/16 12:00 98.2 68 18 116/64 96 Room Air Height (Feet): 5 Height (Inches): 6.00 Weight (Pounds): 180 Respiratory/Chest: lungs clear Cardiovascular: normal rate, regular rhythm, no gallop/murmur Abdomen: soft, non tender Extremities: other - + edema Microbiology Date/Time Source Procedure Growth Status 07/22/16 11:45 Urine,Clean Catch Urine Culture - Preliminary NO GROWTH AFTER 24 HOURS Resulted EMERY HIGGINBOTHAM July 24, 2016 11:27
[2016-07-24 12:00] VITALS: BP 119/62
[2016-07-24 16:00] VITALS: BP 132/67
[2016-07-24 20:00] VITALS: BP 118/70
--- NOTE | 2016-07-24 23:28 | General Progress Note ---
Assessment/Plan Problem List: (1) UTI (urinary tract infection) ICD Codes: N39.0 - Urinary tract infection, site not specified SNOMED: 60124002 (2) Sepsis ICD Codes: A41.9 - Sepsis, unspecified organism SNOMED: 44314215 (3) Gram-positive bacteremia ICD Codes: R78.81 - Bacteremia SNOMED: 068070473484 (4) Anasarca ICD Codes: R60.1 - Generalized edema SNOMED: 102436365, 809786805 Assessment/Plan Abxs diuresis DC soon Subjective Allergies: Coded Allergies: No Known Allergies (Unverified , 07/20/16) Subjective all noted Objective Last 24 Hour Vital Signs Date Time Temp Pulse Resp B/P Pulse Ox O2 Delivery O2 Flow Rate FiO2 07/24/16 20:00 97.9 50 18 118/70 98 Room Air 07/24/16 16:00 96.7 52 17 132/67 97 Room Air 07/24/16 12:00 97.7 50 16 119/62 98 Room Air 07/24/16 08:00 96.0 55 20 136/70 93 Room Air 07/24/16 04:00 97.8 51 21 125/70 99 Room Air 07/24/16 00:00 97.7 50 22 138/60 98 Room Air Intake and Output 07/23/16 07/24/16 19:00 07:00 Intake Total 620 ml Output Total 200 ml 300 ml Balance 420 ml -300 ml Intake Oral 400 ml IV Total 220 ml Output Urine Total 200 ml 300 ml # Bowel Movements 1 Height (Feet): 5 Height (Inches): 6.00 Weight (Pounds): 180 SUSY KULKARNI July 24, 2016 23:28
[2016-07-25 00:26] VITALS: BP 100/50
[2016-07-25] MEDS: Piperacillin/Tazobactam 3.375 GM in D5W 110 ML IVPB SCH ×2 (00:39→08:12)
[2016-07-25 04:32] VITALS: BP 113/52
[2016-07-25 08:00] VITALS: BP 104/58
[2016-07-25] MEDS: Spironolactone 50mg tab ORAL SCH (08:14)
[2016-07-25] MEDS: Lactulose 20gm/30ml UDC ORAL SCH (08:14)
[2016-07-25] MEDS: Furosemide 40mg tab ORAL SCH (08:14)
[2016-07-25] MEDS: Pred Forte 1% Opth Susp 1ml BOTH EYES SCH (08:15)
[2016-07-25] MEDS: Cosopt Opth Soln 10 mL Btl BOTH EYES SCH (08:15)
[2016-07-25] MEDS: Aspirin Baby 81mg ORAL SCH (09:00)
--- NOTE | 2016-07-25 11:53 | Infectious Diseases Prog Note ---
Assessment/Plan Assessment/Plan A: 1. cystitis s/p Rx 2. cirrhosis 3. HPN 4. + blood cultures with coag neg staph likely contaminated P 1. discontinue Zosyn 2. case was D/W primary MD Subjective ROS Limited/Unobtainable: Yes Allergies: Coded Allergies: No Known Allergies (Unverified , 07/20/16) Objective Vital Signs Last 24 Hour Vital Signs Date Time Temp Pulse Resp B/P Pulse Ox O2 Delivery O2 Flow Rate FiO2 07/25/16 08:00 98.1 59 17 104/58 94 Room Air 07/25/16 04:32 98.4 54 18 113/52 98 Room Air 07/25/16 00:26 97.9 51 17 100/50 96 Room Air 07/24/16 20:00 97.9 50 18 118/70 98 Room Air 07/24/16 16:00 96.7 52 17 132/67 97 Room Air 07/24/16 12:00 97.7 50 16 119/62 98 Room Air Height (Feet): 5 Height (Inches): 6.00 Weight (Pounds): 180 General Appearance: no acute distress HEENT: mucous membranes moist Respiratory/Chest: lungs clear Cardiovascular: normal rate Abdomen: soft, non tender Extremities: no edema Neurologic/Psychiatric: other - sleeping Current Medications Medications (Trade) Dose Ordered Sig/Silvestre Route PRN Reason Start Time Stop Time Status Last Admin Dose Admin Acetaminophen (Tylenol) 650 mg Q4H PRN ORAL Mild Pain (Pain Scale 1-3) 07/22/16 23:45 08/21/16 23:44 07/23/16 16:39 Aspirin (ASA) 81 mg DAILY ORAL 07/23/16 09:00 08/22/16 08:59 07/23/16 08:32 Dextrose (Dextrose 50%) STAT PRN IV Hypoglycemia 07/23/16 03:45 08/22/16 03:44 Dorzolamide/ Timolol (Cosopt) 1 drop TWICE A DAY BOTH EYES 07/23/16 09:00 08/22/16 08:59 07/25/16 08:15 Furosemide (Lasix) 40 mg BID ORAL 07/23/16 09:00 08/22/16 08:59 07/25/16 08:14 Lactulose (Cephulac) 30 gm BID ORAL 07/23/16 09:00 08/22/16 08:59 07/25/16 08:14 Magnesium Hydroxide (Mom) 30 ml HSPRN PRN ORAL Constipation 07/23/16 03:45 08/22/16 03:44 Ondansetron HCl (Zofran) 4 mg Q6H PRN IVP Nausea & Vomiting 07/23/16 03:45 08/22/16 03:44 Patient Own Medication (Patient's Own Med) 1 ea QHS BOTH EYES 07/23/16 21:00 08/22/16 20:59 07/24/16 20:23 Piperacillin Sod/ Tazobactam Sod/ Dextrose (Zosyn/D5W) 110 ml @ 27.5 mls/hr Q8H IVPB 07/23/16 00:00 07/30/16 00:00 07/25/16 08:12 Prednisolone Acetate (Pred Forte) 1 drop DAILY BOTH EYES 07/23/16 09:00 08/22/16 08:59 07/25/16 08:15 Ranitidine HCl (Zantac) 150 mg TWICE A DAY ORAL 07/23/16 09:00 08/22/16 08:59 07/25/16 08:14 Spironolactone (Aldactone) 50 mg DAILY ORAL 07/23/16 09:00 08/22/16 08:59 07/25/16 08:14 KIN KULKARNI July 25, 2016 11:53
[2016-07-25 12:00] VITALS: BP 106/60
[2016-07-25] MEDS ORDERED: ALDACTONE50 MG ORAL (14:56)
[2016-07-25] MEDS ORDERED: FUROSEMIDE40 MG ORAL (14:56)
[2016-07-25] MEDS ORDERED: LACTULOSE20 GM/301 ORAL (14:56)
[2016-07-25 16:00] VITALS: BP 115/66
[2016-07-25] MEDS ORDERED: NS 550ML IV ONE (17:11)
--- NOTE | 2016-07-25 21:25 | General Progress Note ---
Assessment/Plan Assessment/Plan Assessment - Cirrhosis, etiology? - portal HTN - Edema - Resolved AMS Recommendations - Check AFP - lactulose - Lasix/Aldactone - low salt diet - can refer to liver transplant clinic as outpatient, although doubt candidate based on age and level of disease Subjective Allergies: Coded Allergies: No Known Allergies (Unverified , 07/20/16) Subjective Feels OK no new complaints d/w at bedside for d/c today Objective Last 24 Hour Vital Signs Date Time Temp Pulse Resp B/P Pulse Ox O2 Delivery O2 Flow Rate FiO2 07/25/16 16:00 97.2 54 17 115/66 98 Room Air 07/25/16 12:00 99.1 52 16 106/60 96 Room Air 07/25/16 08:00 98.1 59 17 104/58 94 Room Air 07/25/16 04:32 98.4 54 18 113/52 98 Room Air 07/25/16 00:26 97.9 51 17 100/50 96 Room Air Intake and Output 07/24/16 07/25/16 18:59 06:59 Intake Total 500 ml 240 ml Output Total 100 ml 500 ml Balance 400 ml -260 ml Intake Oral 500 ml 240 ml Output Urine Total 100 ml 500 ml # Voids 2 # Bowel Movements 2 1 Height (Feet): 5 Height (Inches): 6.00 Weight (Pounds): 180 Objective Debilitated man NCAT supple CTA RRR soft ND NT (+) edema nonfocal NEO TAMAYO July 25, 2016 21:25
--- NOTE | 2016-07-27 14:07 | Discharge Summary ---
Discharge Summary Hospital Course Date of Admission July 20, 2016 at 01:10 Date of Discharge July 25, 2016 at 19:06 Admitting Diagnosis sepsis, near syncope HPI Gokul Stack is a 76 year old male who was admitted on July 20, 2016 at 01:10 for Sepsis/Near Syncope Hospital Course [id number] Discharge Discharge Disposition Patient was discharged to SNF/Subacute Facility(03) Discharge Diagnoses: Lakeisha Ayala NP Jul 27, 2016 14:07
--- NOTE | 2016-07-28 00:30 | Discharge Summary 2 SIG ---
DATE OF ADMISSION: 07/20/2016 DATE OF DISCHARGE: 07/25/2016 CONSULTANTS: 1. Gerson Grady M.D. 2. Edvin Villeda M.D. 3. Steven Pimentel M.D. BRIEF HOSPITAL COURSE: The patient is a 76-year-old male, who was in his usual state of health and went to the bathroom and felt weak. The patient lives with and daughter. They tried to help him get around, however, he became unresponsive and nonverbal, although, his eyes were open. Paramedics were called and the patient was brought in to ED. On evaluation, UA showed too numerous to count RBC with 5 to 10 WBC per HPF. The patient was admitted with syncope and evidence of urinary tract infection and had significant peripheral edema despite being on diuretics questionable underlying congestive heart failure. He was started on IV hydration and was given IV diuresis. Dr. Pimentel was consulted. The patient had retrograde amnesia on the events that happened. There was progressive abnormality of gait with worsening weakness due to underlying infection. Venous duplex of lower extremity was patent bilaterally with no evidence of DVT. He was given IV Zosyn and was followed by Infectious Disease specialist. Blood culture showed growth of coagulase negative Staph, which is most likely contaminant. Urine culture did not isolate any growth. Antibiotic was discontinued. Dr. Grady was consulted for evaluation of cirrhosis. Abdominal and pelvic CAT scan showed no evidence of appendicitis. No evidence of diverticulitis. No evidence of acute abdominopelvic disease with stigmata of portal hypertension including splenomegaly and varices. Renal ultrasound showed a benign simple cortical cyst on the right kidney negative for hydronephrosis. The patient was given Lasix and Aldactone. Alpha fetoprotein is still pending at the time of dictation. Ammonia level was elevated and was given lactulose. Recommend GI followup with liver transplant team as an outpatient. He was eventually discharged to a SNF. DISPOSITION: The patient was discharged to SNF. FINAL DIAGNOSES: 1. Altered mental status/hepatic encephalopathy, resolved. 2. Liver cirrhosis. 3. Portal hypertension. 4. Urinary tract infection. 5. Gram-positive bacteremia. 6. Anasarca. 7. Progressive abnormality of gait with worsening weakness to the underlying infection. 8. Glaucoma. 9. History of prostate cancer status post prostatectomy. Dhaval Villeda M.D. I have been assigned to dictate discharge summary on this account and I was not involved in the patient's management. Lakeisha Ayala N.P. DR: MAYANK JOB#: [id number] CC: GLENDA
--- NOTE | 2016-07-30 01:24 | Cardiology Report ---
APPROVED REPORT EKG Measurement Heart [id number] Sinus rhythm with marked sinus arrhythmia Otherwise normal ECG
--- NOTE | 2016-07-31 07:01 | Cardiology Report ---
APPROVED REPORT EXAM: Two-dimensional and M-mode echocardiogram with Doppler and color Doppler. INDICATION Congestive Heart Failure M-Mode DIMENSIONS IVSd1.0 (0.7-1.1cm)Left Atrium (MM)3.7 (1.6-4.0cm) LVDd4.2 (3.5-5.6cm)Aortic Root2.4 (2.0-3.7cm) PWd0.8 (0.7-1.1cm)Aortic Cusp Exc.1.8 (1.5-2.0cm) LVDs2.9 (2.5-4.0cm) PWs1.2 cm Technically difficult study due to poor acoustic windows. Study quality precludes accurate assessment of regional wall motion. Normal left ventricular chamber size, systolic function and wall motion. Left ventricular ejection fraction estimated to be 60 %. No evidence of ventricular hypertrophy. Anterior Echo-free space, may be due to pericardial fat or effusion. Mild bi-atrial enlargement. Right ventricular chamber size is within normal limits. Mild focal aortic valve sclerosis with adequate cusp excursion. Mildly thickened mitral valve leaflets with normal excursion. Mild mitral annulus and aortic root calcification. Pulmonic valve not well visualized. Normal tricuspid valve structure. IVC dilated at 2.4 cm with physiologic collapse. A color flow and spectral Doppler study was performed and revealed: No aortic regurgitation. Trace mitral regurgitation. Mitral inflow indicate normal left ventricular diastolic function. Trace tricuspid regurgitation. Tricuspid systolic velocities suggests peak right ventricular systolic pressure of 22 mmHg. Trace pulmonic regurgitation present.
== END 2016-07-25 19:06 | DRG 690 ==
LOC: EDBD 00:48 → EMR 01:05 → 2E 01:10 → EDBEDREQ 03:23 → 2E 04:15 → 3E 07-22 22:23
DX: N30.91 Cystitis, unspecified with hematuria (principal); K76.6 Portal hypertension; K74.60 Unspecified cirrhosis of liver; R60.1 Generalized edema; I10 Essential (primary) hypertension; H40.9 Unspecified glaucoma; K80.20 Calculus of gallbladder without cholecystitis without obstruction; K57.90 Diverticulosis of intestine, part unspecified, without perforation or abscess without bleeding; R16.1 Splenomegaly, not elsewhere classified; H54.8 Legal blindness, as defined in USA; K72.90 Hepatic failure, unspecified without coma; Z85.46 Personal history of malignant neoplasm of prostate
CPT/HCPCS: 36415; 71010; 74176; 76775; 80048; 80053; 80061; 81003; 82105; 82140; 82248; 82550; 82553; 82962; 83036; 83605; 83690; 83880; 84484; 85007; 85025; 85610; 85730; 86705; 86709; 86803; 87040; 87086; 87181; 87340; 93005; 93306; 93970

== ENCOUNTER → 2016-08-03 | Outpatient (CLI) | payer MEDICARE, OTHER ==
[~2016-08-03] MED LIST: ALDACTONE50 MG ORAL; COSOPT EYE DROP10 M1 OP; FUROSEMIDE40 MG ORAL; LACTULOSE20 GM/301 ORAL; LASIX20 M1 ORAL; LISINOPRIL10 MG ORAL; LUMIGAN2.5 ML BOTH EYES; PREDNISOLO15 MG/5 M1 ORAL; PREDNISOLONE ACE5 ML OP
[2016-08-03 12:18] LABS: APPEARANCE,URINE CLEAR; KETONES,URINE 1+ (NEGATIVE); LEUKOCYTE ESTERASE ,URINE 1+ (NEGATIVE); NITRITE,URINE NEGATIVE (NEGATIVE); PH,URINE 6 (4.5-8.0); PROTEIN,URINE 2+ (NEGATIVE); UROBILINOGEN,URINE 1 MG/DL (0.0-1.0)
[2016-08-03 12:19] LABS: BASOPHILS % (AUTO) 1.3 % (0.0-2.0); MEAN CORPUSCULAR HEMOGLOBIN 34.1 PG (27.0-31.0); MEAN CORPUSCULAR HGB CONC 34.3 G/DL (32.0-36.0); MEAN CORPUSCULAR VOLUME 99 FL (80-99); MEAN PLATELET VOLUME 5.9 FL (6.5-10.1); NEUTROPHILS % (AUTO) 58.7 % (45.0-75.0); PLATELET COUNT 112 K/UL (150-450); RED BLOOD COUNT 3.88 M/UL (4.20-5.40); RED CELL DISTRIBUTION WIDTH 13.2 % (11.6-14.8); WHITE BLOOD COUNT 5.5 K/UL (4.8-10.8)
[2016-08-03 12:33] LABS: ALANINE AMINOTRANSFERASE 33 U/L (3-33); ALBUMIN/GLOBULIN RATIO 0.4 (1.0-2.7); ANION GAP 12 (5-15); ASPARTATE AMINO TRANSFERASE 68 U/L (5-40); CALCIUM 8.7 mg/dL (8.6-10.2); CARBON DIOXIDE 23 mEQ/L (20-30); CHLORIDE 98 mEQ/L (98-107); CHOLESTEROL 127 mg/dL (< 200); CHOLESTEROL/HDL RATIO 5.1 (3.3-4.4); CREATININE 0.8 mg/dL (0.5-0.9); HEMOLYSIS 4; LDL CHOLESTEROL (CALC.) 70 mg/dL (60-99); POTASSIUM 3.8 mEQ/L (3.4-4.9); SODIUM 133 mEQ/L (135-145); TOTAL PROTEIN 7.7 g/dL (6.6-8.7)
[2016-08-03 12:38] LABS: BACTERIA,URINE FEW /HPF; RBC,URINE 20-30 /HPF (0 - 2); SQUAMOUS EPITHELIAL CELL,UR FEW /LPF (NONE/OCC)
[2016-08-03 12:43] LABS: HEMOGLOBIN A1C 5.4 % (< 6.0)
[2016-08-03 12:48] LABS: BILIRUBIN,DIRECT 0.7 mg/dL (0.1-0.3)
== END | disposition home or self-care (01) ==
LOC: LAB 11:59
DX: I10 Essential (primary) hypertension (principal)
CPT/HCPCS: 36415; 80053; 80061; 81003; 82248; 83036; 85025

== ENCOUNTER 2016-09-18 10:55 | Outpatient (CLI) | payer MEDICARE, OTHER ==
[2016-09-18 11:22] LABS: APPEARANCE,URINE CLEAR; KETONES,URINE 1+ (NEGATIVE); LEUKOCYTE ESTERASE ,URINE 1+ (NEGATIVE); NITRITE,URINE NEGATIVE (NEGATIVE); PH,URINE 6.5 (4.5-8.0); PROTEIN,URINE NEGATIVE (NEGATIVE); UROBILINOGEN,URINE 4 MG/DL (0.0-1.0)
[2016-09-18 11:33] LABS: BASOPHILS % (AUTO) 1.6 % (0.0-2.0); EOSINOPHILS % (AUTO) 1.9 % (0.0-3.0); LYMPHOCYTES % (AUTO) 51.3 % (20.0-45.0); MEAN CORPUSCULAR HGB CONC 35.9 G/DL (32.0-36.0); MEAN CORPUSCULAR VOLUME 103 FL (80-99); MEAN PLATELET VOLUME 5.2 FL (6.5-10.1); MONOCYTES % (AUTO) 6.5 % (1.0-10.0); NEUTROPHILS % (AUTO) 38.7 % (45.0-75.0); PLATELET COUNT 108 K/UL (150-450); RED BLOOD COUNT 3.36 M/UL (4.70-6.10); RED CELL DISTRIBUTION WIDTH 12.7 % (11.6-14.8); WHITE BLOOD COUNT 4.4 K/UL (4.8-10.8)
[2016-09-18 11:37] LABS: BACTERIA,URINE FEW /HPF; SQUAMOUS EPITHELIAL CELL,UR OCCASIONAL /LPF (NONE/OCC)
[2016-09-18 11:46] LABS: ALANINE AMINOTRANSFERASE 30 U/L (3-41); ALBUMIN/GLOBULIN RATIO 0.5 (1.0-2.7); ANION GAP 8 (5-15); ASPARTATE AMINO TRANSFERASE 62 U/L (5-40); CALCIUM 8.4 mg/dL (8.6-10.2); CARBON DIOXIDE 21 mEQ/L (20-30); CHLORIDE 101 mEQ/L (98-107); CHOLESTEROL 114 mg/dL (< 200); CHOLESTEROL/HDL RATIO 4.4 (3.3-4.4); CREATININE 0.8 mg/dL (0.7-1.2); HEMOLYSIS 9; LDL CHOLESTEROL (CALC.) 64 mg/dL (60-99); POTASSIUM 3.9 mEQ/L (3.4-4.9); SODIUM 130 mEQ/L (135-145); TOTAL PROTEIN 7.2 g/dL (6.6-8.7)
[2016-09-18 12:07] LABS: BILIRUBIN,DIRECT 0.7 mg/dL (0.1-0.3)
== END 2016-09-18 12:55 | disposition home or self-care (01) ==
LOC: LAB 10:55
DX: I10 Essential (primary) hypertension (principal); M19.90 Unspecified osteoarthritis, unspecified site
CPT/HCPCS: 36415; 80053; 80061; 81001; 82248; 82306; 84443; 85025

== ENCOUNTER → 2016-10-05 | Outpatient (CLI) | payer MEDICARE, OTHER ==
[2016-10-05 12:39] LABS: EOSINOPHILS % (AUTO) 1.9 % (0.0-3.0); LYMPHOCYTES % (AUTO) 51.7 % (20.0-45.0); MEAN CORPUSCULAR HEMOGLOBIN 36.5 PG (27.0-31.0); MEAN CORPUSCULAR HGB CONC 35.3 G/DL (32.0-36.0); MEAN CORPUSCULAR VOLUME 103 FL (80-99); MEAN PLATELET VOLUME 5.1 FL (6.5-10.1); MONOCYTES % (AUTO) 5.9 % (1.0-10.0); NEUTROPHILS % (AUTO) 39.5 % (45.0-75.0); PLATELET COUNT 103 K/UL (150-450); RED BLOOD COUNT 3.51 M/UL (4.70-6.10); RED CELL DISTRIBUTION WIDTH 12.2 % (11.6-14.8); WHITE BLOOD COUNT 4.1 K/UL (4.8-10.8)
[2016-10-05 12:52] LABS: ANION GAP 9 (5-15); CALCIUM 8.7 mg/dL (8.6-10.2); CARBON DIOXIDE 23 mEQ/L (20-30); CHLORIDE 101 mEQ/L (98-107); HEMOLYSIS 58; POTASSIUM 4.1 mEQ/L (3.4-4.9); SODIUM 133 mEQ/L (135-145)
== END | disposition home or self-care (01) ==
LOC: LAB 11:57
DX: Z01.818 Encounter for other preprocedural examination (principal)
CPT/HCPCS: 36415; 80048; 85025

== ENCOUNTER 2016-11-27 11:33 | Outpatient (CLI) | payer MEDICARE, OTHER ==
[2016-11-27 11:56] LABS: APPEARANCE,URINE CLEAR; KETONES,URINE NEGATIVE (NEGATIVE); LEUKOCYTE ESTERASE ,URINE 1+ (NEGATIVE); NITRITE,URINE NEGATIVE (NEGATIVE); PH,URINE 6 (4.5-8.0); PROTEIN,URINE NEGATIVE (NEGATIVE); UROBILINOGEN,URINE 4 MG/DL (0.0-1.0)
[2016-11-27 12:00] LABS: MEAN CORPUSCULAR HEMOGLOBIN 36.5 PG (27.0-31.0); MEAN CORPUSCULAR HGB CONC 35.5 G/DL (32.0-36.0); MEAN CORPUSCULAR VOLUME 103 FL (80-99); MEAN PLATELET VOLUME 5.6 FL (6.5-10.1); PLATELET COUNT 89 K/UL (150-450); RED BLOOD COUNT 4.22 M/UL (4.70-6.10); WHITE BLOOD COUNT 6.1 K/UL (4.8-10.8)
[2016-11-27 12:12] LABS: BACTERIA,URINE FEW /HPF; SQUAMOUS EPITHELIAL CELL,UR OCCASIONAL /LPF (NONE/OCC)
[2016-11-27 12:13] LABS: MUCUS,URINE FEW /LPF (NONE/OCC)
[2016-11-27 12:27] LABS: BAND NEUTROPHILS % (MANUAL) 0 % (0-8); BASOPHILS % (MANUAL) 0 % (0-2); EOSINOPHILS % (MANUAL) 0 % (0-3); LYMPHOCYTES % (MANUAL) 15 % (20-45); MACROCYTES 1+; NEUTROPHILS % (MANUAL) 75 % (45-75); PLATELET ESTIMATE DECREASED; PLATELET MORPHOLOGY NORMAL; TOTAL CELLS COUNTED 100
[2016-11-27 12:30] LABS: ALANINE AMINOTRANSFERASE 72 U/L (3-41); ALBUMIN/GLOBULIN RATIO 0.6 (1.0-2.7); ANION GAP 9 (5-15); ASPARTATE AMINO TRANSFERASE 67 U/L (5-40); CALCIUM 8.9 mg/dL (8.6-10.2); CARBON DIOXIDE 27 mEQ/L (20-30); CHLORIDE 90 mEQ/L (98-107); CHOLESTEROL 244 mg/dL (< 200); CHOLESTEROL/HDL RATIO 7.2 (3.3-4.4); HEMOLYSIS 2; LDL CHOLESTEROL CALC 155 mg/dL (60-99); SODIUM 126 mEQ/L (135-145); TOTAL PROTEIN 6.8 g/dL (6.6-8.7)
[2016-11-27 12:31] LABS: HEMOGLOBIN A1C 9.5 % (< 6.0)
[2016-11-27 13:20] LABS: BILIRUBIN,DIRECT 1.3 mg/dL (0.1-0.3)
== END 2016-11-27 13:33 | disposition home or self-care (01) ==
LOC: LAB 11:33
DX: R73.9 Hyperglycemia, unspecified (principal); I10 Essential (primary) hypertension
CPT/HCPCS: 36415; 80053; 80061; 81003; 82248; 83036; 84443; 85007; 85025